=== PATIENT | female | born 1970 | race Caucasian/White ===

== ENCOUNTER 2016-11-15 14:11 | Emergency (ER) | payer BC ==
[~2016-11-15] VITALS: Ht 172.7 cm; Wt 81.6 kg
[~2016-11-15 14:11] MED LIST: ACET325T9 PO; IBUP200T43 PO; NAPR500T3 PO; TRAM50TA PO
--- NOTE | 2016-11-15 15:01 | ED.ADGEN ---
Past History Past Medical History: Depression, Endometriosis, UTI, Other Past Surgical History: Cholecystectomy, , Tonsillectomy, Other Smoking: Non-smoker Alcohol Use: None Drug Use: None Adult General HPI HPI Patient is a 45-year-old female presents emergency department complaining of increasing dyspnea over the last 2-3 days. Denies any recent illness, cough, fever, chills. Denies any wheezing or history of asthma. Patient notes that she does have a history of anxiety and is currently on Lexapro for that. She does admit that she has not always taken it faithfully but has never required anything for breakthrough anxiety. She was recently started on phentermine for weight loss and is concerned this may be a side effect of that as well. She has not taken the phentermine for the last 2 days but continues to have increasing dyspnea. She reports a significant increase the amount of stress that she is experiencing both at work and at home. She is currently raising on her own children including one special needs child, she is currently caring for her grandchildren as well. 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 She does not smoke or take any hormone supplements. She has had no recent surgery, immobilizations, or travel. Review of Systems Review of Systems Constitutional: Denies fever or chills [] Eyes: Denies change in visual acuity, redness, or eye pain [] HENT: Denies nasal congestion or sore throat [] Respiratory: Denies cough or shortness of breath [] Cardiovascular: No additional information not addressed in HPI [] GI: Denies abdominal pain, nausea, vomiting, bloody stools or diarrhea [] : Denies dysuria or hematuria [] Musculoskeletal: Denies back pain or joint pain [] Integument: Denies rash or skin lesions [] Neurologic: Denies headache, focal weakness or sensory changes [] Endocrine: Denies polyuria or polydipsia [] Current Medications Current Medications Current Medications Medications (Trade) Dose Ordered Sig/Segun Start Time Stop Time Status Last Admin Dose Admin Alprazolam (Xanax) 0.5 mg 1X ONCE 11/15/16 15:15 11/15/16 15:16 DC 11/15/16 15:07 0.5 MG Allergies Allergies Allergies Coded Allergies Type Severity Reaction Last Updated Verified Penicillins Allergy Unknown 12/07/15 Yes hydrocodone Allergy Unknown 12/07/15 Yes ketorolac Allergy Unknown 12/07/15 Yes morphine Allergy Unknown 12/07/15 Yes oxycodone Allergy Unknown 12/07/15 Yes Physical Exam Physical Exam Constitutional: Well developed, well nourished, no acute distress, non-toxic appearance. [] HENT: Normocephalic, atraumatic, bilateral external ears normal, oropharynx moist, no oral exudates, nose normal. [] Eyes: PERRLA, EOMI, conjunctiva normal, no discharge. [] Neck: Normal range of motion, no tenderness, supple, no stridor. [] Cardiovascular:Heart rate regular rhythm, no murmur [] Lungs & Thorax: Bilateral breath sounds clear to auscultation [] Abdomen: Bowel sounds normal, soft, no tenderness, no masses, no pulsatile masses. [] Skin: Warm, dry, no erythema, no rash. [] Back: No tenderness, no CVA tenderness. [] Extremities: No tenderness, no cyanosis, no clubbing, ROM intact, no edema. [] Neurologic: Alert and oriented X 3, normal motor function, normal sensory function, no focal deficits noted. [] Psychologic: Affect normal, judgement normal, mood normal. [] Current Patient Data Vital Signs Vital Signs Date Time Temp Pulse Resp B/P Pulse Ox O2 Delivery O2 Flow Rate FiO2 11/15/16 16:02 71 20 122/83 98 Room Air 11/15/16 14:11 98.7 EKG EKG EKG interpreted by me, normal sinus rhythm, 69 beats for minute, no ST segment elevation, normal axis. [] Radiology/Procedures Radiology/Procedures [] Course & Med Decision Making Course & Med Decision Making Pertinent Labs and Imaging studies reviewed. (See chart for details) [] Final Impression Final Impression anxiety[] Problems: Dragon Disclaimer Dragon Disclaimer This electronic medical record was generated, in whole or in part, using a voice recognition dictation system. ASHWIN WISE MD Nov 15, 2016 15:01
[2016-11-15] MEDS ORDERED: ALPRAZOLAM 0.25 MG TABLET PO ONE (15:15)
[2016-11-15] MEDS ORDERED: ALPR0.5T PO (15:52)
[2016-11-15 16:02] VITALS: BP 122/83
--- NOTE | 2016-11-17 11:56 | EKG ---
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
== END 2016-11-15 16:00 | disposition home or self-care (01) ==
LOC: ER 14:11
DX: F41.9 Anxiety disorder, unspecified (principal); F32.9 Major depressive disorder, single episode, unspecified; R06.00 Dyspnea, unspecified; Z87.440 Personal history of urinary (tract) infections; Z88.0 Allergy status to penicillin; Z88.5 Allergy status to narcotic agent; Z88.8 Allergy status to other drugs, medicaments and biological substances
CPT/HCPCS: 93005; 99283-25

== ENCOUNTER 2016-12-28 00:40 | Emergency (ER) | payer BC ==
[~2016-12-28] VITALS: Ht 172.7 cm; Wt 91.5 kg
[2016-12-28 00:40] VITALS: BP 138/91
[~2016-12-28 00:40] MED LIST changes: +ALPR0.5T PO
--- NOTE | 2016-12-28 00:58 | PHYS DOC ---
Past History Past Medical History: Depression, Endometriosis, UTI, Other Past Surgical History: Cholecystectomy, , Tonsillectomy, Other Smoking: Non-smoker Alcohol Use: None Drug Use: None Adult General Chief Complaint Chief Complaint: DENTAL PROBLEM HPI HPI 46-year-old female complaining of dental pain. Her pain is throbbing and moderate nonradiating and without alleviating factors. She's been taking acetaminophen and ibuprofen for her pain with minimal relief. Review of systems is negative for chest pain shortness of breath tongue swelling drooling neck pain fevers or chills. All other review of systems is negative unless otherwise noted in history of present illness. Review of Systems Review of Systems SEE ABOVE. Allergies Allergies Allergies Coded Allergies Type Severity Reaction Last Updated Verified Penicillins Allergy Unknown 12/07/15 Yes hydrocodone Allergy Unknown 12/07/15 Yes ketorolac Allergy Unknown 12/07/15 Yes morphine Allergy Unknown 12/07/15 Yes oxycodone Allergy Unknown 12/07/15 Yes Physical Exam Physical Exam Constitutional: Well developed, well nourished, no acute distress, non-toxic appearance. [] HENT: Normocephalic, atraumatic, bilateral external ears normal, oropharynx moist, no oral exudates, nose normal. Right upper back teeth show poor dentition with cavities. No periapical abscesses present. No swelling of the tongue. No fluctuant masses in the neck. Eyes: PERRLA, EOMI, conjunctiva normal, no discharge. Neck: Normal range of motion, no tenderness, supple, no stridor. [] Cardiovascular:Heart rate regular rhythm, no murmur Lungs & Thorax: Bilateral breath sounds clear to auscultation [] Abdomen: Bowel sounds normal, soft, no tenderness, no masses, no pulsatile masses. Skin: Warm, dry, no erythema, no rash. Back: No tenderness, no CVA tenderness. [] Extremities: No tenderness, no cyanosis, no clubbing, ROM intact, no edema. Neurologic: Alert and oriented X 3, normal motor function, normal sensory function, no focal deficits noted. [] Psychologic: Affect normal, judgement normal, mood normal. [] EKG EKG [] Radiology/Procedures Radiology/Procedures [] Course & Med Decision Making Course & Med Decision Making Pertinent Labs and Imaging studies reviewed. (See chart for details) [] 46-year-old female presenting the emergency department dental pain. She is allergic to most opioid medications and NSAIDs so I recommended acetaminophen and follow up with dental clinic in the morning. The patient was then discharged home in stable condition to follow up with their primary care physician over the next 2-3 days. They were to return if their symptoms worsened or if they were concerned for any reason. [id number] discharge instructions and return precautions were given. Patient's questions were answered to their satisfaction. Patient is comfortable plan. Dragon Disclaimer Dragon Disclaimer This chart was dictated in whole or in part using Voice Recognition software in a busy, high-work load, and often noisy Emergency Department environment. It may contain unintended and wholly unrecognized errors or omissions. Departure Departure: Impression: Primary Impression: Pain, dental Disposition: 01 HOME, SELF-CARE Condition: STABLE Referrals: YOSELIN SANCHEZ MD (PCP) Patient Instructions: Dental Pain LAUREL DAUGHERTY MD December 28, 2016 00:58
== END 2016-12-28 01:08 | disposition home or self-care (01) ==
LOC: ER 00:40
DX: K08.89 Other specified disorders of teeth and supporting structures (principal); Z87.440 Personal history of urinary (tract) infections; Z88.0 Allergy status to penicillin; Z88.6 Allergy status to analgesic agent; Z88.5 Allergy status to narcotic agent; Z88.8 Allergy status to other drugs, medicaments and biological substances
CPT/HCPCS: 99281

== ENCOUNTER → 2017-03-12 | Outpatient (CLI) | payer BC ==
[~2017-03-12] MED LIST changes: +IOHEXOL 240 MG/ML 50ML VIAL. ONE
[2017-03-12] MEDS: IOHEXOL 240 MG/ML 50ML VIAL. PO ONE (08:34)
[2017-03-12] MEDS: IOHEXOL 300 MG/ML 75 ML VIAL. IV ONE (08:35)
--- NOTE | 2017-03-12 11:37 | RAD ---
CT abdomen and pelvis with contrast 03/12/2017 Clinical indication: Pelvic pain, chronic. Endometriosis, urinary incontinence. PID, UTIs frequently. Comparison: CT pelvis without contrast November 14, 2013 Technique: Multiple CT images of the abdomen and pelvis were obtained following uneventful intravenous administration of 75 mL Omnipaque 300. Coronal and sagittal reformations were obtained. PQRS Compliance Statement: One or more of the following individualized dose reduction techniques were utilized for this examination: 1. Automated exposure control 2. Adjustment of the mA and/or kV according to patient size 3. Use of iterative reconstruction technique Findings: Abdomen and pelvis: Heart size is normal and lung bases are clear. Examination is somewhat limited due to motion artifact especially of the mid abdomen. Liver is normal in morphology. There is a stable 7 mm hypodense hepatic segment 8 (series 4/image 9) and is too small to definitively characterize, though stability suggests benign cyst or hemangioma. Evaluation of the inferior right and left lobes of the liver is significantly limited due to motion artifact. Prior cholecystectomy. No intra or extra-axial biliary ductal dilatation. Spleen, adrenal glands and pancreas are within normal limits. There are a few 2 mm nonobstructive left renal calculi. No collecting system dilatation. Abdominal aorta is normal in caliber. Mild calcified atheromatous disease of the iliac arteries. No bowel obstruction. No abdominal free fluid. There is fecal lies distal small bowel contents which suggests component of delayed transit. Mild distended and unopacified urinary bladder demonstrates mild circumferential urinary bladder wall thickening. Uterus is present and, though incompletely evaluated by CT. No iliac or inguinal lymphadenopathy. No retroperitoneal lymphadenopathy. No destructive osseous lesions. Impression: 1. Examination of the mid abdomen is somewhat limited due to motion. 2. Two tiny nonobstructive left nephrolithiasis. 3. Mild circumferential urinary bladder wall thickening, can be seen with cystitis. Correlation with urinalysis is recommended.
== END | disposition home or self-care (01) ==
LOC: CT 07:02
PROVIDERS: ATTEND Family Medicine
DX: N20.0 Calculus of kidney (principal); I70.8 Atherosclerosis of other arteries; N39.0 Urinary tract infection, site not specified; N39.498 Other specified urinary incontinence; N73.9 Female pelvic inflammatory disease, unspecified; N80.9 Endometriosis, unspecified
CPT/HCPCS: 74177; Q9966; Q9967

== ENCOUNTER 2017-03-19 09:35 | Inpatient (IN) | payer BC ==
[~2017-03-19] VITALS: Ht 175.3 cm; Wt 81.7 kg
[~2017-03-19 09:35] MED LIST changes: -IOHEXOL 240 MG/ML 50ML VIAL. ONE
[2017-03-19 10:14] VITALS: BP 119/82
[2017-03-19] MEDS ORDERED: ONDANSETRON ODT 4 MG TAB.RAPDIS PO PRN (10:30)
[2017-03-19] MEDS ORDERED: ONDANSETRON PF 4 MG/2 ML VIAL. IV PRN (10:30)
[2017-03-19 10:33] VITALS: BP 119/82
[2017-03-19] MEDS ORDERED: LEVO150T5 PO (10:37)
[2017-03-19 10:51] LABS: BASO # 0.1 x10^3/uL (0.0-0.2); BASO % 1 % (0-3); EOS # 0.4 x10^3/uL (0.0-0.7); EOS % 8 % (0-3); HEMATOCRIT 38.6 % (36.0-47.0); HEMOGLOBIN 12.8 g/dL (12.0-15.5); LYMPH # 1.5 x10^3/uL (1.0-4.8); LYMPH % 31 % (24-48); MEAN CORPUSCULAR HEMOGLOBIN 29 pg (25-35); MEAN CORPUSCULAR HGB CONC 33 g/dL (31-37); MEAN CORPUSCULAR VOLUME 86 fL (79-100); MONO # 0.4 x10^3/uL (0.0-1.1); MONO % 8 % (0-9); NEUT # 2.5 x10^3uL (1.8-7.7); NEUT % 52 % (31-73); PLATELET COUNT 228 x10^3/uL (140-400); RED BLOOD COUNT 4.49 x10^6/uL (3.50-5.40); WHITE BLOOD COUNT 4.9 x10^3/uL (4.0-11.0)
[2017-03-19] MEDS: ALPRAZolam 0.25 MG TABLET PO PRN (11:09)
[2017-03-19] MEDS: IV NORMAL SALINE 1,000ML 1,000 ML IV SCH ×2 (11:10→19:10)
[2017-03-19] MEDS: fentaNYL PF 100 MCG/2 ML VIAL IV PRN ×3 (11:10→19:10)
[2017-03-19 11:24] LABS: ALBUMIN 3.8 g/dL (3.4-5.0); ALBUMIN/GLOBULIN RATIO 1.1 (1.0-1.7); CREATININE 0.9 mg/dL (0.6-1.0); POTASSIUM 3.7 mmol/L (3.5-5.1); TOTAL BILIRUBIN 0.4 mg/dL (0.2-1.0); TOTAL PROTEIN 7.3 g/dL (6.4-8.2)
[2017-03-19 11:48] LABS: AMORPHOUS SEDIMENT,UR PRESENT /HPF; BACTERIA,URINE FEW /HPF (0-FEW); BILIRUBIN,URINE NEG (NEG); CLARITY,URINE CLOUDY; COLOR,URINE YELLOW; GLUCOSE,URINE NEG (NEG); NITRITE,URINE NEG (NEG); SQUAMOUS EPITHELIAL CELL,UR MOD /LPF; UROBILINOGEN,URINE 0.2 mg/dL (0.2 mg/dL)
--- NOTE | 2017-03-19 12:09 | RAD ---
Indication kidney stone. Persistent pain. Axial images through the abdomen and pelvis were obtained. The examination was tailored for the detection of renal and/or ureteral calculi. No IV or gastrointestinal contrast was administered. Note is made of a previous BX examination of the abdomen and pelvis, with both IV and oral contrast, one week ago. The lung bases are clear. The liver and spleen appear unremarkable. Clips are noted in the gallbladder fossa. No pancreatic abnormality is seen. There are 3 small left renal calculi the largest measuring approximately 2 to 3 mm. No right renal calculi are seen. There is no hydronephrosis hydroureter or calcification seen along the course of either ureter. Multiple calcifications are seen in the pelvis similar to the previous exam compatible with phleboliths. Several diverticula are noted in the large bowel no active inflammation is seen. IMPRESSION: 3 small left intrarenal calculi. No hydronephrosis hydroureter or calcification seen along the course of either ureter. No acute finding seen in the abdomen or pelvis PQRS Compliance Statement: One or more of the following individualized dose reduction techniques were utilized for this examination: 1. Automated exposure control 2. Adjustment of the mA and/or kV according to patient size 3. Use of iterative reconstruction technique
[2017-03-19 15:03] VITALS: BP 121/80
[2017-03-19 19:21] VITALS: BP 131/88
[2017-03-19 23:27] VITALS: BP 120/78
--- NOTE | 2017-03-20 00:41 | ACF ---
Admission Criteria Forms URINARY COMPLICATIONS (Place 'X' for any and all applicable criteria): Ongoing inpatient care may be needed for Urinary complications with 1 or more of the following: [ ]I. Reduced urine output (eg, despite adequate hydration) [ ]II. Renal failure. (Also use Renal Failure: Common Complications and Conditions as appropriate) [ ]III. Urinary retention requiring drainage or surgery(19)(20)(21)(33)(34) [ ]IV. Postobstructive diuresis requiring close monitoring of urine output and intravenous compensation for excessive fluid losses(35) [x]V. Urinary tract infection requiring inpatient care as indicated by ANY ONE of the following(8)(19)(20): [ ]a) Hemodynamic instability [ ]b) Severe symptoms (eg, high fever, severe pain) [ ]c) Vomiting or dehydration requiring ongoing inpatient care [x]d) IV antibiotic needs that cannot be managed at lower level of care [ ]e) Obstruction of collecting system by stone or tumor Extended stay beyond goal length of stay for primary condition may be needed until ALL of the following are present(3)(4)(5)(8): [ ]a) Renal function (creatinine) at baseline, or daily decreases in creatinine consistent with renal function return [ ]b) Voiding adequately or with urinary catheter or percutaneous suprapubic tube and management regimen in place that is performable at lower level of care. [ ]c) Urine output adequate [ ]d) Fever absent or resolving [ ]e) Infection absent or treatable at next level of care The original [employer] content created by [email or web address] has been revised. The portions of the content which have been revised are identified through the use of italic text, and [facility] has neither reviewed nor approved the modified material. All other unmodified content is copyright [facility] Please see references footnoted in the original [facility] edition 2014 Admission Criteria Met?: Yes IGOR VERA Mar 20, 2017 00:41
[2017-03-20] MEDS: fentaNYL PF 100 MCG/2 ML VIAL IV PRN ×2 (01:40→07:58)
[2017-03-20 05:31] VITALS: BP 110/77
[2017-03-20] MEDS: IV NORMAL SALINE 1,000ML 1,000 ML IV SCH ×2 (05:51→17:08)
[2017-03-20 06:55] LABS: BASO # 0.1 x10^3/uL (0.0-0.2); BASO % 2 % (0-3); EOS # 0.4 x10^3/uL (0.0-0.7); EOS % 9 % (0-3); HEMATOCRIT 37.4 % (36.0-47.0); HEMOGLOBIN 12.3 g/dL (12.0-15.5); LYMPH # 1.3 x10^3/uL (1.0-4.8); LYMPH % 31 % (24-48); MEAN CORPUSCULAR HEMOGLOBIN 28 pg (25-35); MEAN CORPUSCULAR HGB CONC 33 g/dL (31-37); MEAN CORPUSCULAR VOLUME 86 fL (79-100); MONO # 0.3 x10^3/uL (0.0-1.1); MONO % 7 % (0-9); NEUT # 2.2 x10^3uL (1.8-7.7); NEUT % 51 % (31-73); PLATELET COUNT 208 x10^3/uL (140-400); RED BLOOD COUNT 4.35 x10^6/uL (3.50-5.40); RED CELL DISTRIBUTION WIDTH 14.6 % (11.5-14.5); WHITE BLOOD COUNT 4.2 x10^3/uL (4.0-11.0)
[2017-03-20 06:58] LABS: CALCIUM 8.3 mg/dL (8.5-10.1); CREATININE 0.8 mg/dL (0.6-1.0); GFR 77.9; POTASSIUM 4.1 mmol/L (3.5-5.1)
[2017-03-20] MEDS: LEVOTHYROXINE 150 MCG TABLET PO SCH (07:58)
[2017-03-20 10:30] VITALS: BP 123/94
[2017-03-20] MEDS: traMADol/APAP 37.5/325 1 TAB TABLET PO PRN ×2 (12:08→20:35)
[2017-03-20] MEDS ORDERED: MORPHINE ER 15 MG TABLET.ER PO SCH (14:00)
[2017-03-20] MEDS ORDERED: MORPHINE ER 15 MG TABLET.ER PO ONE (14:00)
[2017-03-20 14:17] VITALS: BP 128/85
[2017-03-20] MEDS ORDERED: fentaNYL 25MCG/HR 1 PATCH PATCH TD SCH (16:30)
[2017-03-20] MEDS ORDERED: DOCUSATE SODIUM 100 MG CAPSULE PO PRN (16:30)
[2017-03-20] MEDS ORDERED: PSYLLIUM SEED (WITH SUGAR) PACKET. PO PRN (16:30)
[2017-03-20] MEDS ORDERED: MAGNESIUM CITRATE 296 ML SOLUTION. PO ONE (16:45)
[2017-03-20 18:30] VITALS: BP 131/90
[2017-03-20] MEDS: ALPRAZolam 0.25 MG TABLET PO PRN (20:35)
[2017-03-20 23:09] VITALS: BP 127/84
[2017-03-20] MEDS: diphenhydrAMINE HCL 25 MG CAPSULE PO PRN (23:21)
[2017-03-21] MEDS: IV NORMAL SALINE 1,000ML 1,000 ML IV SCH ×2 (02:39→12:30)
[2017-03-21 02:47] VITALS: BP 133/92
--- NOTE | 2017-03-21 03:25 | PN ---
DATE: 03/20/2017 SUBJECTIVE: The patient has right abdominal pain so it is somewhat better, but still in quite a bit of pain trying to find medications that will help her and some of the medications used she has had reactions too. The patient notes pain has about 6-10 even with morphine. We will try her on Duragesic patch. OBJECTIVE: VITAL SIGNS: Blood pressure 130/90, respiratory rate 20, pulse 64, afebrile. GENERAL: The patient is alert and oriented. LUNGS: Diminished, but clear. CARDIOVASCULAR: Regular sinus rhythm, S1, S2, without murmur, rub, thrill, or extra heart sounds. ABDOMEN: Soft, nontender except in the right mid quadrant, right lower quadrant, marked tenderness was noted. EXTREMITIES: No clubbing, cyanosis, or edema. NEUROLOGIC: Otherwise intact. IMPRESSION: Abdominal pain not controlled with oral analgesics, kidney stones, nephrolithiasis. PLAN: Continue to adjust medications and hydrate . OBDULIA DALE MD DR: DEBRA/alvino JOB#: [id number] / [id number]
[2017-03-21 04:28] VITALS: BP 127/87
[2017-03-21] MEDS: LEVOTHYROXINE 150 MCG TABLET PO SCH (06:03)
[2017-03-21 06:15] VITALS: BP 131/84
[2017-03-21] MEDS: traMADol/APAP 37.5/325 1 TAB TABLET PO PRN (06:18)
[2017-03-21 06:31] LABS: BARBITURATES NEG (NEG); BENZODIAZEPINES NEG (NEG); CANNABINOIDS NEG (NEG); COCAINE NEG (NEG); METHADONE NEG (NEG); OPIATES POS (NEG); PHENCYCLIDINE NEG (NEG)
[2017-03-21 06:32] LABS: AMPHETAMINE/METHAMPHETAMINE NEG (NEG)
[2017-03-21 11:51] VITALS: BP 120/76
[2017-03-21] MEDS ORDERED: KETOROLAC TROMETHAMINE 10 MG TABLET PO PRN (12:15)
[2017-03-21] MEDS: diphenhydrAMINE HCL 25 MG CAPSULE PO PRN (12:32)
[2017-03-21] MEDS ORDERED: KETO10TA PO (15:13)
[2017-03-21 15:29] VITALS: BP 126/80
[2017-03-21] MEDS ORDERED: PROM25TA10 PO (16:08)
--- NOTE | 2017-03-21 20:42 | PN ---
DATE: 03/21/2017 The patient will be discharged home today. The patient has been having problems with her fentanyl patch. She still has some diffuse abdominal pain, will probably need a colonoscopy or something as an outpatient, put her on Toradol for now. She has got good kidney function. Continue to monitor have for her followup, but apparently she does have a reaction to fentanyl now as well as several of the other narcotic medications. OBDULIA DALE MD DR: DEBRA/alvino JOB#: [id number] / [id number]
== END 2017-03-21 16:20 | disposition home or self-care (01) | DRG 694 ==
LOC: 1 SOUTH 09:41
PROVIDERS: ADMIT Family Medicine; ATTEND Family Medicine
DX: N20.0 Calculus of kidney (principal); E28.2 Polycystic ovarian syndrome; E89.0 Postprocedural hypothyroidism; Z90.49 Acquired absence of other specified parts of digestive tract
CPT/HCPCS: 36415; 74176; 80048; 80053; 80307; 81001; 83605; 85025; 85027; 87086; J0696; J2405; J3010; Q0163; G0479; J7030

== ENCOUNTER 2017-05-12 12:27 | Emergency (ER) | payer BC ==
[~2017-05-12] VITALS: Ht 175.3 cm; Wt 91.5 kg
[~2017-05-12 12:27] MED LIST changes: +KETO10TA PO; +LEVO150T5 PO; -NAPR500T3 PO; +NAPR500T4 PO; +PROM25TA10 PO
--- NOTE | 2017-05-12 13:10 | PHYS DOC ---
Past History Past Medical History: Anxiety, Depression, Endometriosis, Kidney Stones, UTI, Other Past Surgical History: Cholecystectomy, , Tonsillectomy, Other Smoking: Non-smoker Alcohol Use: None Drug Use: None Adult General Chief Complaint Chief Complaint: BACK PAIN OR INJURY HPI HPI 46-year-old female presenting to the emergency department today with right- sided low back pain that is been present for more than 2 years. It comes and goes and she has been working with her primary care physician to come up with solutions. She reports having multiple MRIs and multiple CAT scans are all within normal limits. She reports having a lumbar MRI within the last month which was reportedly unremarkable. She reports having mild tingling in her foot the pain is sharp shooting radiates into her buttocks. It is worse when she walks and moves. It is better with rest. She has had a really difficult time at work because of the pain. She has tried fentanyl patches and is unfortunately allergic to most opioid medications. The patient denies any fevers chills. She denies IV drug use. She denies fecal incontinence. She denies perineal paresthesias. Review of systems is negative for chest pain shortness of breath nausea vomiting fevers or chills. All other review of systems is negative unless otherwise noted in history of present illness. Emergency department course: 46-year-old female presenting to the emergency department today with severe right lower back pain. Pertinent physical examination findings show tenderness along the right buttocks. Nontender midline without any fluctuance ecchymosis lacerations or abrasions. No step- offs of the lumbar spine. Positive straight leg test on the right. The patient was provided with intramuscular hydromorphone for pain relief. On reexamination her pain improved. We attempted to obtain a urinalysis on the patient along with test however the patient was unable to obtain urinalysis after being in the emergency department for 90 minutes. She denies being . Bladder scan shows the patient has 90 mL of urine. The patient reports not being able to urinate. The patient was then discharged home to continue following up with her primary care physician. The patient was then discharged home in stable condition to follow up with their primary care physician over the next 2-3 days. They were to return if their symptoms worsened or if they were concerned for any reason. [id number] discharge instructions and return precautions were given. Patient's questions were answered to their satisfaction. Patient is comfortable plan. Review of Systems Review of Systems SEE ABOVE. Allergies Allergies Allergies Coded Allergies Type Severity Reaction Last Updated Verified Penicillins Allergy Unknown 12/07/15 Yes hydrocodone Allergy Unknown 12/07/15 Yes oxycodone Allergy Unknown 12/07/15 Yes Physical Exam Physical Exam SEE ABOVE Constitutional: Well developed, well nourished, no acute distress, non-toxic appearance. [] HENT: Normocephalic, atraumatic, bilateral external ears normal, oropharynx moist, no oral exudates, nose normal. [] Eyes: PERRLA, EOMI, conjunctiva normal, no discharge. [] Neck: Normal range of motion, no tenderness, supple, no stridor. [] Cardiovascular:Heart rate regular rhythm, no murmur [] Lungs & Thorax: Bilateral breath sounds clear to auscultation [] Abdomen: Bowel sounds normal, soft, no tenderness, no masses, no pulsatile masses. [] Skin: Warm, dry, no erythema, no rash. [] Back: No tenderness, no CVA tenderness. [] Extremities: No tenderness, no cyanosis, no clubbing, ROM intact, no edema. [] Neurologic: Alert and oriented X 3, normal motor function, normal sensory function, no focal deficits noted. []5 out of 5 strength in the patient's right lower and left lower extremity. 2+ deep tendon reflexes in the knees. Psychologic: Affect normal, judgement normal, mood normal. [] Current Patient Data Vital Signs Vital Signs Date Time Temp Pulse Resp B/P (MAP) Pulse Ox O2 Delivery O2 Flow Rate FiO2 05/12/17 12:27 97.4 100 18 100 Room Air EKG EKG [] Radiology/Procedures Radiology/Procedures [] Course & Med Decision Making Course & Med Decision Making Pertinent Labs and Imaging studies reviewed. (See chart for details) [] Dragon Disclaimer Dragon Disclaimer This chart was dictated in whole or in part using Voice Recognition software in a busy, high-work load, and often noisy Emergency Department environment. It may contain unintended and wholly unrecognized errors or omissions. Departure Departure: Impression: Primary Impression: Sciatica Disposition: 01 HOME, SELF-CARE Condition: STABLE Referrals: OBDULIA DALE MD (PCP) Patient Instructions: Sciatica, [id number] Additional Instructions: Thank you for allowing us to participate in your care today. Followup with your primary care physician in 3 days if your symptoms do not improve. Call your Primary Doctor tomorrow and inform them of your visit today. If you do not have a primary care provider you can ask for a list of our primary care providers. Return to the emergency department you have any new or concerning findings. This should be evaluated by the primary care physician and any necessary consulting services for continued management within a few days after discharge. Return to emergency room if you have any new or concerning symptoms including but not limited to fever, chills, nausea, vomiting, intractable pain, any new rashes, chest pain, shortness of air, uncontrolled bleeding, difficulty breathing, and/or vision loss. LAUREL DAUGHERTY MD May 12, 2017 13:10
[2017-05-12] MEDS ORDERED: HYDROmorphone PF 1 MG/ML DISP.SYRIN IM ONE (13:15)
[2017-05-12 15:13] LABS: BACTERIA,URINE FEW /HPF (0-FEW); BILIRUBIN,URINE NEG (NEG); CLARITY,URINE CLEAR; COLOR,URINE YELLOW; GLUCOSE,URINE NEG (NEG); NITRITE,URINE NEG (NEG); SQUAMOUS EPITHELIAL CELL,UR FEW /LPF; UROBILINOGEN,URINE 0.2 mg/dL (0.2 mg/dL)
[2017-05-12 15:14] LABS: U PREG PATIENT NEGATIVE (NEG)
[2017-05-12] MEDS ORDERED: HYDROmorphone PF 1 MG/ML DISP.SYRIN IV PRN (17:15)
[2017-05-12] MEDS ORDERED: IV NORMAL SALINE 500ML 500 ML IV ONE (17:15)
[2017-05-12] MEDS ORDERED: ONDANSETRON PF 4 MG/2 ML VIAL. IV ONE (17:35)
[2017-05-12 18:12] VITALS: BP 144/85
== END 2017-05-12 18:13 | disposition home or self-care (01) ==
LOC: ER 12:27
DX: M54.41 Lumbago with sciatica, right side (principal); F41.9 Anxiety disorder, unspecified; Z87.442 Personal history of urinary calculi; Z87.440 Personal history of urinary (tract) infections; Z98.890 Other specified postprocedural states; Z88.0 Allergy status to penicillin; Z88.5 Allergy status to narcotic agent
CPT/HCPCS: 81001; 81025; 96361; 96372; 96374; 96375; 99284; J1170; J2405; J7040

== ENCOUNTER 2017-07-14 17:10 | Emergency (ER) | payer BC ==
[~2017-07-14] VITALS: Ht 175.3 cm; Wt 91.5 kg
[~2017-07-14 17:10] MED LIST changes: -IBUP200T43 PO; +IBUP200T44 PO
--- NOTE | 2017-07-14 17:54 | EKG ---
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
[2017-07-14] MEDS ORDERED: IV NORMAL SALINE 1,000ML 1,000 ML IV ONE (19:00)
[2017-07-14 19:03] LABS: BASO % 0 % (0-3); EOS # 0.2 x10^3/uL (0.0-0.7); EOS % 2 % (0-3); HEMOGLOBIN 13.3 g/dL (12.0-15.5); LYMPH # 2.5 x10^3/uL (1.0-4.8); LYMPH % 37 % (24-48); MEAN CORPUSCULAR HEMOGLOBIN 29 pg (25-35); MEAN CORPUSCULAR HGB CONC 34 g/dL (31-37); MEAN CORPUSCULAR VOLUME 86 fL (79-100); MONO # 0.5 x10^3/uL (0.0-1.1); MONO % 8 % (0-9); NEUT # 3.6 x10^3uL (1.8-7.7); NEUT % 53 % (31-73); PLATELET COUNT 271 x10^3/uL (140-400); RED BLOOD COUNT 4.52 x10^6/uL (3.50-5.40); RED CELL DISTRIBUTION WIDTH 13.4 % (11.5-14.5); WHITE BLOOD COUNT 6.8 x10^3/uL (4.0-11.0)
[2017-07-14] MEDS ORDERED: methylPREDNISolone SOD SUCC PF 125 MG/2 ML VIAL. IV ONE (19:15)
[2017-07-14] MEDS ORDERED: IPRATRPIUM/ALBUTEROL 0.5/2.5MG 3 ML NEBU. NEB ONE (19:15)
[2017-07-14 19:25] LABS: ALBUMIN/GLOBULIN RATIO 1.1 (1.0-1.7); CALCIUM 10.2 mg/dL (8.5-10.1); GFR 60.2; MAGNESIUM 1.9 mg/dL (1.8-2.4); POTASSIUM 4.1 mmol/L (3.5-5.1); TOTAL BILIRUBIN 0.3 mg/dL (0.2-1.0); TOTAL PROTEIN 7.8 g/dL (6.4-8.2)
--- NOTE | 2017-07-14 19:50 | PHYS DOC ---
Past History Past Medical History: Anxiety, Depression, Endometriosis, GERD, Kidney Stones, UTI, Other Past Surgical History: Cholecystectomy, , Tonsillectomy, Other Smoking: Non-smoker Alcohol Use: Occasionally Drug Use: None Adult General Chief Complaint Chief Complaint: SHORTNESS OF BREATH HPI HPI 46-year-old nonsmoking female patient complaining of episodes of productive cough for the last 8 days with yellow and green sputum that changed to nonproductive cough the last couple days. Patient also complaining of shortness of breath constantly and patient feeling in her chest for the same time. Patient denies fever and chills, sore throat, nasal congestion and earache. Patient did not have sick contacts at home. Patient was seen at [facility] last week with overnight admission and negative evaluation including CT of chest for PE. Patient states she did not have any definitive diagnosis or prescription and her shortness of breath and cough is not getting better and she is not able to sleep and feeling tired and weak. Review of Systems Review of Systems Constitutional: Denies fever or chills [] Eyes: Denies change in visual acuity, redness, or eye pain [] HENT: Denies nasal congestion or sore throat [] Respiratory: Reports cough and shortness of breath [] Cardiovascular: No additional information not addressed in HPI [] GI: Denies abdominal pain, nausea, vomiting, bloody stools or diarrhea [] : Denies dysuria or hematuria [] Musculoskeletal: Denies back pain or joint pain [] Integument: Denies rash or skin lesions [] Neurologic: Denies headache, focal weakness or sensory changes [] Endocrine: Denies polyuria or polydipsia [] All other systems were reviewed and found to be within normal limits, except as documented in this note. Current Medications Current Medications Current Medications Medications (Trade) Dose Ordered Sig/Segun Start Time Stop Time Status Last Admin Dose Admin Albuterol/ Ipratropium (Duoneb) 3 ml 1X ONCE 07/14/17 19:15 07/14/17 19:16 DC 07/14/17 19:21 3 ML Methylprednisolone Sodium Succinate (SOLU-Medrol 125MG VIAL) 125 mg 1X ONCE 07/14/17 19:15 07/14/17 19:16 DC 07/14/17 19:21 125 MG Sodium Chloride 1,000 ml @ 1,000 mls/hr 1X ONCE 07/14/17 19:00 07/14/17 19:59 07/14/17 19:21 1,000 MLS/HR Allergies Allergies Allergies Coded Allergies Type Severity Reaction Last Updated Verified Penicillins Allergy Unknown 12/07/15 Yes hydrocodone Allergy Unknown 12/07/15 Yes oxycodone Allergy Unknown 12/07/15 Yes Physical Exam Physical Exam Constitutional: Well developed, well nourished, mild distress, non-toxic appearance,anxious. [] HENT: Normocephalic, atraumatic, bilateral external ears normal, oropharynx moist, no oral exudates, nose normal. [] Eyes: PERRLA, EOMI, conjunctiva normal, no discharge. [] Neck: Normal range of motion, no tenderness, supple, no stridor. [] Cardiovascular:Heart rate regular rhythm, no murmur [] Lungs & Thorax: Bilateral breath sounds clear to auscultation [] Abdomen: Bowel sounds normal, soft, no tenderness, no masses, no pulsatile masses. [] Skin: Warm, dry, no erythema, no rash. [] Back: No tenderness, no CVA tenderness. [] Extremities: No tenderness, no cyanosis, no clubbing, ROM intact, no edema. [] Neurologic: Alert and oriented X 3, normal motor function, normal sensory function, no focal deficits noted. Current Patient Data Vital Signs Vital Signs Date Time Temp Pulse Resp B/P (MAP) Pulse Ox O2 Delivery O2 Flow Rate FiO2 07/14/17 19:27 99 Room Air 07/14/17 17:10 98.1 94 20 Lab Results Laboratory Tests Test 07/14/17 18:34 07/14/17 18:39 [id number]-Type Natriuretic Peptide 64 pg/mL (0-124) White Blood Count 6.8 x10^3/uL (4.0-11.0) Red Blood Count 4.52 x10^6/uL (3.50-5.40) Hemoglobin 13.3 g/dL (12.0-15.5) Hematocrit 39.0 % (36.0-47.0) Mean Corpuscular Volume 86 fL (79-100) Mean Corpuscular Hemoglobin 29 pg (25-35) Mean Corpuscular Hemoglobin Concent 34 g/dL (31-37) Red Cell Distribution Width 13.4 % (11.5-14.5) Platelet Count 271 x10^3/uL (140-400) Neutrophils (%) (Auto) 53 % (31-73) Lymphocytes (%) (Auto) 37 % (24-48) Monocytes (%) (Auto) 8 % (0-9) Eosinophils (%) (Auto) 2 % (0-3) Basophils (%) (Auto) 0 % (0-3) Neutrophils # (Auto) 3.6 x10^3uL (1.8-7.7) Lymphocytes # (Auto) 2.5 x10^3/uL (1.0-4.8) Monocytes # (Auto) 0.5 x10^3/uL (0.0-1.1) Eosinophils # (Auto) 0.2 x10^3/uL (0.0-0.7) Basophils # (Auto) 0.0 x10^3/uL (0.0-0.2) Sodium Level 143 mmol/L (136-145) Potassium Level 4.1 mmol/L (3.5-5.1) Chloride Level 106 mmol/L (98-107) Carbon Dioxide Level 25 mmol/L (21-32) Anion Gap 12 (6-14) Blood Urea Nitrogen 14 mg/dL (7-20) Creatinine 1.0 mg/dL (0.6-1.0) Estimated GFR (Cockcroft-Gault) 60.2 BUN/Creatinine Ratio 14 (6-20) Glucose Level 97 mg/dL (70-99) Calcium Level 10.2 mg/dL (8.5-10.1) H Magnesium Level 1.9 mg/dL (1.8-2.4) Total Bilirubin 0.3 mg/dL (0.2-1.0) Aspartate Amino Transferase (AST) 23 U/L (15-37) Alanine Aminotransferase (ALT) 24 U/L (14-59) Alkaline Phosphatase 48 U/L (46-116) Creatine Kinase 106 U/L (26-192) Creatine Kinase MB (Mass) 2.2 ng/mL (0.0-3.6) Creatine Kinase MB Relative Index 2.1 % (0-4) Troponin I Quantitative < 0.017 ng/mL (0-0.055) Total Protein 7.8 g/dL (6.4-8.2) Albumin 4.0 g/dL (3.4-5.0) Albumin/Globulin Ratio 1.1 (1.0-1.7) EKG EKG KG was interpreted by me. EKG at 1750 showed normal sinus rhythm at rate of 87, no ST and T wave abnormality[] Radiology/Procedures Radiology/Procedures [] Course & Med Decision Making Course & Med Decision Making Pertinent Labs and Imaging studies reviewed. (See chart for details) chest x- ray was interpreted by me and did not show acute finding. Evaluation of patient in ER showed 46-year-old female patient with complaining of cough and shortness of breath and pressure chest pain for 8 days with negative evaluation at another hospital including CT of chest for PE. Patient was anxious and tearful with unremarkable labs and chest x-ray. Patient treated with DuoNeb and Solu-Medrol and IV fluid and felt better. Plan discharge patient home to diagnose of bronchitis. Dragon Disclaimer Dragon Disclaimer This electronic medical record was generated, in whole or in part, using a voice recognition dictation system. Departure Departure: Impression: Primary Impression: Acute bronchitis Additional Impressions: Anxiety Non-cardiac chest pain Dyspnea Hypercalcemia Disposition: HOME, SELF-CARE (At 1999) Condition: IMPROVED Referrals: OBDULIA DALE MD (PCP) Follow-up with your physician in 3-5 days Patient Instructions: Acute Bronchitis Scripts Albuterol Sulfate (PROVENTIL HFA INHALER) 6.7 Gm Hfa.aer.ad 2 PUFF IH PRN Q4HRS Y for FOR ASTHMA, #1 INHALER 0 Refills Prov: DONELL HOLDER MD 07/14/17 Benzonatate (TESSALON PERLE) 100 Mg Capsule 1 CAP PO TID, #30 CAP Prov: DONELL HOLDER MD 07/14/17 Methylprednisolone (MEDROL) 4 Mg Tab.ds.pk 1 PKG PO UD, #1 PKG Prov: DONELL HOLDER MD 07/14/17 Azithromycin (ZITHROMAX) 250 Mg Tablet 1 PKG PO UD, #6 TAB Prov: DONELL HOLDER MD 07/14/17 Problem Qualifiers DONELL HOLDER MD Jul 14, 2017 19:50
[2017-07-14] MEDS ORDERED: AZIT250T PO (20:05)
[2017-07-14] MEDS ORDERED: BENZ100C PO (20:05)
[2017-07-14] MEDS ORDERED: ALBU6.7H IH (20:05)
[2017-07-14] MEDS ORDERED: METH4TAB2 PO (20:05)
[2017-07-14 20:30] VITALS: BP 115/71
--- NOTE | 2017-07-15 08:22 | RAD ---
Chest, 2 views, 07/14/2017: History: Shortness of breath Comparison is made to a study from 10/02/2013. The heart size and pulmonary vascularity are normal. No pulmonary infiltrates are seen. There is no evidence of pleural fluid. Mild spurring is present in the spine. IMPRESSION: No acute cardiopulmonary abnormality is detected.
== END 2017-07-14 20:35 | disposition home or self-care (01) ==
LOC: ER 17:10
DX: J20.9 Acute bronchitis, unspecified (principal); F41.9 Anxiety disorder, unspecified; E83.52 Hypercalcemia; K21.9 Gastro-esophageal reflux disease without esophagitis; F32.9 Major depressive disorder, single episode, unspecified; Z87.442 Personal history of urinary calculi; Z88.0 Allergy status to penicillin; Z88.5 Allergy status to narcotic agent
CPT/HCPCS: 36415; 71020; 80053; 82553; 83735; 83880; 84443; 84484; 85025; 93005; 94640; 96361; 96374; 99285; J2930; J7620; J7030

== ENCOUNTER 2017-09-27 17:58 | Inpatient (IN) | payer BC ==
[~2017-09-27] VITALS: Ht 175.3 cm; Wt 77.7 kg
[~2017-09-27 17:58] MED LIST changes: +ALBU6.7H IH; +AZIT250T PO; +BENZ100C PO; +METH4TAB2 PO; +NAPR-514 PO; -NAPR500T4 PO
--- NOTE | 2017-09-27 18:36 | ED.ADGEN ---
Past History Past Medical History: Anxiety, Depression, Endometriosis, GERD, Kidney Stones, UTI, Other Past Surgical History: Cholecystectomy, , Tonsillectomy, Other Smoking: Non-smoker Alcohol Use: Occasionally Drug Use: None Adult General Chief Complaint Chief Complaint " I got this pain and discomfort in my chest and Lt shoulder.. It seemed to start after I took this new pain tablet..." HPI HPI Patient is a 46 year old female who presents with above hx and complaints of chronic sciatica and new Lt shoulder/ chest pain. She denies previous cardiac history. Patient denies any trauma. Patient is currently under a lot of stress at work and with home problems. Patient also complaining of recent exacerbation of her sciatica. Patient recently given a new drug for her chronic pain. Patient noted that her chest pain in left shoulder discomfort seemed to start after taking this medication. Patient states nothing seems to make the chest and shoulder pain better. No recent travel. No history immunosuppression. Review of Systems Review of Systems Constitutional: Denies fever or chills [] Eyes: Denies change in visual acuity, redness, or eye pain [] HENT: Denies nasal congestion or sore throat [] Respiratory: Denies cough or shortness of breath [] Cardiovascular: No additional information not addressed in HPI [] GI: Denies abdominal pain, nausea, vomiting, bloody stools or diarrhea [] : Denies dysuria or hematuria [] Musculoskeletal: Denies back pain or joint pain [] Integument: Denies rash or skin lesions [] Neurologic: Denies headache, focal weakness or sensory changes [] Endocrine: Denies polyuria or polydipsia [] All other systems were reviewed and found to be within normal limits, except as documented in this note. Family History Family History Noncontributory Current Medications Current Medications Current Medications Medications (Trade) Dose Ordered Sig/Segun Start Time Stop Time Status Last Admin Dose Admin Aspirin (Children'S Aspirin) 324 mg 1X ONCE 09/27/17 19:00 09/27/17 19:01 DC 09/27/17 19:31 324 MG Fentanyl Citrate (Fentanyl 2ml Vial) 100 mcg 1X ONCE 09/27/17 21:00 09/27/17 21:01 DC 09/27/17 21:00 100 MCG Info (Do NOT chart on this entry -- for MONITORING) 1 each PRN DAILY PRN 09/27/17 19:00 2/21/18 18:59 Iohexol (Omnipaque 300 Mg/ml) 75 ml 1X ONCE 09/27/17 19:00 09/27/17 19:01 DC Ketorolac Tromethamine (Toradol) 30 mg 1X ONCE 09/27/17 21:00 09/27/17 21:01 DC 09/27/17 20:59 30 MG Potassium Chloride (KCl Oral Soln) 40 meq 1X ONCE 09/27/17 23:00 09/27/17 23:01 DC 09/27/17 23:00 40 MEQ Sodium Chloride 1,000 ml @ 1,000 mls/hr Q1H 09/27/17 18:37 09/27/17 19:36 DC 09/27/17 19:31 1,000 MLS/HR Trimethoprim/ Sulfamethoxazole (Bactrim Ds) 1 tab 1X ONCE 09/27/17 23:00 09/27/17 23:01 DC 09/27/17 23:00 1 TAB See nursing for home medications Allergies Allergies Allergies Coded Allergies Type Severity Reaction Last Updated Verified Penicillins Allergy Unknown 12/07/15 Yes hydrocodone Allergy Unknown 12/07/15 Yes oxycodone Allergy Unknown 12/07/15 Yes Physical Exam Physical Exam Constitutional: Well developed, well nourished, moderately acute distress, non- toxic appearance. [] HENT: Normocephalic, atraumatic, bilateral external ears normal, oropharynx moist, no oral exudates, nose normal. [] Eyes: PERRLA, EOMI, conjunctiva normal, no discharge. [] Neck: Normal range of motion, no tenderness, supple, no stridor. [] Cardiovascular:Heart rate regular rhythm, no murmur [] Lungs & Thorax: Bilateral breath sounds clear to auscultation [] Abdomen: Bowel sounds normal, soft, no tenderness, no masses, no pulsatile masses. [] Skin: Warm, dry, no erythema, no rash. [] Back: Marked tenderness, no CVA tenderness. [] Extremities: No tenderness, no cyanosis, no clubbing, ROM intact, no edema. [] Left shoulder and chest discomfort Neurologic: Alert and oriented X 3, normal motor function, normal sensory function, no focal deficits noted. [] Psychologic: Affect normal, judgement normal, mood normal. [] Current Patient Data Vital Signs Vital Signs Date Time Temp Pulse Resp B/P (MAP) Pulse Ox O2 Delivery O2 Flow Rate FiO2 09/27/17 22:45 68 18 119/82 (94) 98 Room Air 09/27/17 19:08 97.8 Lab Results Laboratory Tests Test 09/27/17 19:00 09/27/17 20:45 09/27/17 20:57 White Blood Count 4.7 x10^3/uL (4.0-11.0) Red Blood Count 4.13 x10^6/uL (3.50-5.40) Hemoglobin 11.7 g/dL (12.0-15.5) L Hematocrit 35.2 % (36.0-47.0) L Mean Corpuscular Volume 85 fL (79-100) Mean Corpuscular Hemoglobin 28 pg (25-35) Mean Corpuscular Hemoglobin Concent 33 g/dL (31-37) Red Cell Distribution Width 14.3 % (11.5-14.5) Platelet Count 213 x10^3/uL (140-400) Neutrophils (%) (Auto) 50 % (31-73) Lymphocytes (%) (Auto) 36 % (24-48) Monocytes (%) (Auto) 9 % (0-9) Eosinophils (%) (Auto) 4 % (0-3) H Basophils (%) (Auto) 1 % (0-3) Neutrophils # (Auto) 2.4 x10^3uL (1.8-7.7) Lymphocytes # (Auto) 1.7 x10^3/uL (1.0-4.8) Monocytes # (Auto) 0.4 x10^3/uL (0.0-1.1) Eosinophils # (Auto) 0.2 x10^3/uL (0.0-0.7) Basophils # (Auto) 0.1 x10^3/uL (0.0-0.2) Prothrombin Time 10.2 SEC (9.4-11.4) Prothrombin Time INR 1.0 (0.9-1.1) PTT 23 SEC (23-33) D-Dimer ([place]) 0.34 mg/L (0.00-0.50) Sodium Level 142 mmol/L (136-145) Potassium Level 3.3 mmol/L (3.5-5.1) L Chloride Level 105 mmol/L (98-107) Carbon Dioxide Level 30 mmol/L (21-32) Anion Gap 7 (6-14) Blood Urea Nitrogen 17 mg/dL (7-20) Creatinine 0.7 mg/dL (0.6-1.0) Estimated GFR (Cockcroft-Gault) 90.9 Glucose Level 104 mg/dL (70-99) H Calcium Level 8.8 mg/dL (8.5-10.1) Magnesium Level 1.8 mg/dL (1.8-2.4) Total Bilirubin 0.3 mg/dL (0.2-1.0) Direct Bilirubin 0.1 mg/dL (0.0-0.2) Aspartate Amino Transferase (AST) 16 U/L (15-37) Alanine Aminotransferase (ALT) 21 U/L (14-59) Alkaline Phosphatase 40 U/L (46-116) L Creatine Kinase 90 U/L (26-192) Creatine Kinase MB (Mass) 2.1 ng/mL (0.0-3.6) Creatine Kinase MB Relative Index 2.3 % (0-4) Troponin I Quantitative < 0.017 ng/mL (0-0.055) YD-[id number]-S-Type Natriuretic Peptide 67 pg/mL (0-124) Total Protein 7.1 g/dL (6.4-8.2) Albumin 3.7 g/dL (3.4-5.0) Lipase 206 U/L (73-393) Urine Collection Type Unknown Urine Color Yellow Urine Clarity Cloudy Urine pH 8.0 Urine Specific [place] 1.015 Urine Protein Neg (NEG-TRACE) Urine Glucose (UA) Neg mg/dL (NEG) Urine Ketones (Stick) Neg mg/dL (NEG) Urine Blood Neg (NEG) Urine Nitrite Neg (NEG) Urine Bilirubin Neg (NEG) Urine Urobilinogen Dipstick 0.2 mg/dL (0.2 mg/dL) Urine Leukocyte Esterase Trace (NEG) Urine RBC Occ /HPF (0-2) Urine WBC 1-4 /HPF (0-4) Urine Squamous Epithelial Cells Few /LPF Urine Amorphous Sediment Present /HPF Urine Bacteria Few /HPF (0-FEW) Urine Opiates Screen Neg (NEG) Urine Methadone Screen Neg (NEG) Urine Barbiturates Neg (NEG) Urine Phencyclidine Screen Neg (NEG) Urine Amphetamine/Methamphetamine Neg (NEG) Urine Benzodiazepines Screen Neg (NEG) Urine Cocaine Screen Neg (NEG) Urine Cannabinoids Screen Neg (NEG) Urine Ethyl Alcohol Neg (NEG) POC Urine HCG, Qualitative hcg negative (Negative) EKG EKG My interpretation EKG shows sinus rhythm at 79 bpm. No findings acute morphology. Some nonspecific EKG abnormalities noted. No findings acute STEMI of contralateral changes.[] Radiology/Procedures Radiology/Procedures I interpretation chest x-ray shows no acute cardiopulmonary findings[] Course & Med Decision Making Course & Med Decision Making Pertinent Labs and Imaging studies reviewed. (See chart for details). Plan admission Dr. Crook. Obtain cardiology consult. [] Final Impression Final Impression 1. Chest pain- 2. Anemia 3. Hypokalemia 4. UTI-possible Problems: Dragon Disclaimer Dragon Disclaimer This electronic medical record was generated, in whole or in part, using a voice recognition dictation system. NATHANIEL TEJEDA MD Sep 27, 2017 18:36
[2017-09-27] MEDS ORDERED: IV NORMAL SALINE 1,000ML 1,000 ML IV SCH (18:37)
[2017-09-27] MEDS ORDERED: ASPIRIN 81 MG TAB.CHEW PO ONE (19:00)
[2017-09-27] MEDS ORDERED: CONTRAST GIVEN MC PRN (19:00)
[2017-09-27] MEDS ORDERED: IOHEXOL 300 MG/ML 75 ML VIAL. IV ONE (19:00)
[2017-09-27 19:28] LABS: BASO # 0.1 x10^3/uL (0.0-0.2); BASO % 1 % (0-3); EOS # 0.2 x10^3/uL (0.0-0.7); EOS % 4 % (0-3); HEMATOCRIT 35.2 % (36.0-47.0); HEMOGLOBIN 11.7 g/dL (12.0-15.5); LYMPH # 1.7 x10^3/uL (1.0-4.8); LYMPH % 36 % (24-48); MEAN CORPUSCULAR HEMOGLOBIN 28 pg (25-35); MEAN CORPUSCULAR HGB CONC 33 g/dL (31-37); MEAN CORPUSCULAR VOLUME 85 fL (79-100); MONO # 0.4 x10^3/uL (0.0-1.1); MONO % 9 % (0-9); NEUT # 2.4 x10^3uL (1.8-7.7); NEUT % 50 % (31-73); PLATELET COUNT 213 x10^3/uL (140-400); RED BLOOD COUNT 4.13 x10^6/uL (3.50-5.40); RED CELL DISTRIBUTION WIDTH 14.3 % (11.5-14.5); WHITE BLOOD COUNT 4.7 x10^3/uL (4.0-11.0)
[2017-09-27 19:51] LABS: ALBUMIN 3.7 g/dL (3.4-5.0); CALCIUM 8.8 mg/dL (8.5-10.1); CREATININE 0.7 mg/dL (0.6-1.0); DIRECT BILIRUBIN 0.1 mg/dL (0.0-0.2); GFR 90.9; MAGNESIUM 1.8 mg/dL (1.8-2.4); POTASSIUM 3.3 mmol/L (3.5-5.1); TOTAL BILIRUBIN 0.3 mg/dL (0.2-1.0); TOTAL PROTEIN 7.1 g/dL (6.4-8.2)
[2017-09-27] MEDS ORDERED: KETOROLAC 30 MG/ML VIAL. IV ONE (21:00)
[2017-09-27] MEDS ORDERED: PHEN37.598 PO (21:02)
[2017-09-27 21:43] LABS: BARBITURATES NEG (NEG); BENZODIAZEPINES NEG (NEG); CANNABINOIDS NEG (NEG); COCAINE NEG (NEG); METHADONE NEG (NEG); OPIATES NEG (NEG); PHENCYCLIDINE NEG (NEG)
[2017-09-27 21:44] LABS: AMPHETAMINE/METHAMPHETAMINE NEG (NEG)
[2017-09-27 22:16] LABS: BACTERIA,URINE FEW /HPF (0-FEW); BILIRUBIN,URINE NEG (NEG); CLARITY,URINE CLOUDY; COLOR,URINE YELLOW; GLUCOSE,URINE NEG (NEG); NITRITE,URINE NEG (NEG); RBC,URINE OCC /HPF (0-2); SQUAMOUS EPITHELIAL CELL,UR FEW /LPF; UROBILINOGEN,URINE 0.2 mg/dL (0.2 mg/dL)
[2017-09-27 22:17] LABS: AMORPHOUS SEDIMENT,UR PRESENT /HPF
[2017-09-27] MEDS ORDERED: SMZ/TMP 800/160MG TABLET. PO ONE (23:00)
[2017-09-27] MEDS ORDERED: POTASSIUM CHLORIDE 20 MEQ/15 ML ORAL LIQUID. PO ONE (23:00)
[2017-09-27] MEDS ORDERED: ONDANSETRON PF 4 MG/2 ML VIAL. ONE (23:14)
[2017-09-27] MEDS ORDERED: ONDANSETRON PF 4 MG/2 ML VIAL. IV PRN (23:30)
[2017-09-27] MEDS ORDERED: ENOXAPARIN ** NOTE DOSE ** SYRINGE SQ ONE (23:30)
[2017-09-27] MEDS ORDERED: ONDANSETRON PF 4 MG/2 ML VIAL. IV ONE (23:30)
[2017-09-28 01:01] VITALS: BP 121/84
[2017-09-28 03:00] LABS: BASO # 0.1 x10^3/uL (0.0-0.2); BASO % 1 % (0-3); EOS # 0.2 x10^3/uL (0.0-0.7); EOS % 4 % (0-3); HEMATOCRIT 36.3 % (36.0-47.0); LYMPH # 2.1 x10^3/uL (1.0-4.8); LYMPH % 40 % (24-48); MEAN CORPUSCULAR HEMOGLOBIN 29 pg (25-35); MEAN CORPUSCULAR HGB CONC 33 g/dL (31-37); MEAN CORPUSCULAR VOLUME 88 fL (79-100); MONO # 0.5 x10^3/uL (0.0-1.1); MONO % 9 % (0-9); NEUT # 2.4 x10^3uL (1.8-7.7); NEUT % 46 % (31-73); PLATELET COUNT 182 x10^3/uL (140-400); RED BLOOD COUNT 4.14 x10^6/uL (3.50-5.40); RED CELL DISTRIBUTION WIDTH 14.8 % (11.5-14.5); WHITE BLOOD COUNT 5.2 x10^3/uL (4.0-11.0)
[2017-09-28 03:04] LABS: CALCIUM 8.6 mg/dL (8.5-10.1); CREATININE 0.7 mg/dL (0.6-1.0); GFR 90.9
[2017-09-28 06:22] VITALS: BP 116/73
--- NOTE | 2017-09-28 08:26 | RAD ---
2 view CXR: Clinical indications: Chest pain today. Comparison: July 14, 2017. Findings: No acute lung infiltrate or pleural effusion or pulmonary edema or lung mass or pneumothorax is seen. The heart size, pulmonary vasculature, mediastinum and both selvin are unremarkable. The osseous structures appear intact. Impression: No acute radiographic abnormality is seen.
--- NOTE | 2017-09-28 08:31 | EKG ---
[address] [address] Test Date: 2017-09-27 Test Time: 18:10:56 Pat Name: KALPANA WOODS Department: Room: 121 A Gender: F Storage Battery Charger: PAMELA : [id number] Requested By: NATHANIEL TEJEDA Order Number: [id number] Reading MD: Shawn Hawthorne Measurements Intervals [place] Rate: 79 P: 70 NV: 174 QRS: 52 QRSD: 82 T: 54 QT: 370 QTc: 425 Interpretive Statements SINUS RHYTHM NO SPECIFIC ECG ABNORMALITIES RI6.01 Compared to ECG 07/14/2017 17:50:24 No significant changes Electronically Signed On 09-29-2017 11:49:58 [employer] by Shawn Hawthorne
[2017-09-28 11:00] VITALS: BP 119/79
--- NOTE | 2017-09-28 13:36 | PDOC2 ---
MABLE ALEJANDRO MATERIALS MANAGEMENT CLERK 09/28/17 1336: CONSULT Date of Admission DATE: 09/28/17 TIME: 13:13 Reason for Consult: Chest pain Referring Physician: Dr. Crook Problem List Problems Medical Problems: (1) Chest pain Status: Acute History of Present Illness This is a pleasant 46-year-old female who presented to the Emergency room with chief complaint Of chest pain.She has a past history of Chronic sciatica problems,Anxiety, Asthma,And thyroid problems.Yesterday while she was at work Not doing any particular activity she began having chest discomfort.It felt like pressure in the center for chest and started about 30 minutes after she taken a new pain medication.At first she was just feeling "weird" And I was having a hard time catching her breath.It continued and she felt pressure and when she would take a deep breath It would feel like Fleischmanns poking her.It was associated with nausea, clamminess but no vomiting.It Lasted about three hours and started to make her left arm is numb so she came into the emergency room for evaluation.She can still feel the pressure this morning And is worse with taking a deep breath.She didn't have pneumonia in July but it's not had any type of respiratory infection since then.She has not had any recent fever, chills, Cough.Today she does not feel short of breath or any nausea just the pressure sensation at times.She has felt chest pressure similar in the past but it was not as bad and at that time was anxiety.She is worried about her heart because her family has a long history at early heart disease. Radio of systemsReview of 10 organ systems is negative except for us in HPI. Past medical historyThyroid disease, Asthma, Esophageal strictures, Colitis, Kidney stones, UTI,Anxiety,Chronic sciatic pain. Past surgical history Thyroidectomy, Cholecystectomy And three C-sections Social history She lives at home and works. She denies Any tobacco or drug use Family historyHer father has had three heart attacks, first one before age 55. Hypertension, diabetes and cancer also run In her family. Physical examination Temperature afebrile, Pulse -78, Blood dobalvuj841/84. General appearanceThis is a well-developed white female In no apparent distress. Head And Neck - No carotid bruit, no JVD Eyes Extra ocular movements are intact,No Xanthelasma HeartRhythm and rate were regular.Normal S1 and S2.No S3 S4. Lungs Clear to auscultation ExtremitiesNo swelling, well palpable pedal pulses. AbdomenActive bowel sounds,Nondistended, Nontender Muscular No kyphosis, no scoliosis,No localized tenderness Neurologic Cranial nervesThree through 12 are grossly intact Psych This is a pleasant patient with a normal effects. Impression and plan. Chest painAtypical, First two sets of enzymes are negative and her EKG does not show any ischemic changes.Will plan for an echocardiogram today and if normal wall motion she may be discharged home for an outpatient stress test. Plan to check Fasting lipids.Her risk factor profile is Significant for family history. Current Medications Current Medications Aspirin (Children'S Aspirin) 324 mg 1X ONCE PO Last administered on 09/27/17at 19:31; Start 09/27/17 at 19:00; Stop 09/27/17 at 19:01; Status DC Sodium Chloride 1,000 ml @ 1,000 mls/hr Q1H IV Last administered on 09/27/17at 19:31; Start 09/27/17 at 18:37; Stop 09/27/17 at 19:36; Status DC Iohexol (Omnipaque 300 Mg/ml) 75 ml 1X ONCE IV ; Start 09/27/17 at 19:00; Stop 09/27/17 at 19:01; Status DC Info (Do NOT chart on this entry -- for MONITORING) 1 each PRN DAILY PRN MC SEE COMMENTS; Start 09/27/17 at 19:00; Stop 09/29/17 at 18:59 Fentanyl Citrate (Fentanyl 2ml Vial) 100 mcg 1X ONCE IM Last administered on at 21:00; Start 09/27/17 at 21:00; Stop 09/27/17 at 21:01; Status DC Ketorolac Tromethamine (Toradol) 30 mg 1X ONCE IV Last administered on at 20:59; Start 09/27/17 at 21:00; Stop 09/27/17 at 21:01; Status DC Trimethoprim/ Sulfamethoxazole (Bactrim Ds) 1 tab 1X ONCE PO Last administered on 09/27/17at 23:00; Start 09/27/17 at 23:00; Stop 09/27/17 at 23:01 ; Status DC Potassium Chloride (KCl Oral Soln) 40 meq 1X ONCE PO Last administered on 09/27at 23:00; Start 09/27/17 at 23:00; Stop 09/27/17 at 23:01; Status DC Ondansetron HCl (Zofran) 4 mg STK-MED ONCE .ROUTE ; Start 09/27/17 at 23:14; Stop 09/27/17 at 23:15; Status DC Enoxaparin Sodium (Lovenox 80mg Syringe) 80 mg 1X ONCE SQ Last administered on 09/27/17at 23:30; Start 09/27/17 at 23:30; Stop 09/27/17 at 23:31; Status DC Fentanyl Citrate (Fentanyl 2ml Vial) 100 mcg 1X ONCE IM Last administered on at 23:30; Start 09/27/17 at 23:30; Stop 09/27/17 at 23:31; Status DC Ondansetron HCl (Zofran) 8 mg 1X ONCE IV Last administered on 09/27/17at 23:22 ; Start 09/27/17 at 23:30; Stop 09/27/17 at 23:31; Status DC Ondansetron HCl (Zofran) 4 mg PRN Q4HRS PRN IV NAUSEA/VOMITING; Start 09/27/17 at 23:30; Stop 09/28/17 at 23:29 Fentanyl Citrate (Fentanyl 2ml Vial) 100 mcg 1X ONCE IM ; Start 09/28/17 at 00: 30; Stop 09/28/17 at 00:32; Status DC Active Scripts Active Reported Adipex-P (Phentermine Hcl) 37.5 Mg Tablet 1 Tab PO DAILY Levothyroxine Sodium 150 Mcg Tablet 150 Mcg PO DAILYAC Allergies: Coded Allergies: Penicillins (Verified Allergy, Unknown, 12/07/15) hydrocodone (Verified Allergy, Unknown, 12/07/15) oxycodone (Verified Allergy, Unknown, 12/07/15) VITALS Vital Signs Date Time Temp Pulse Resp B/P (MAP) Pulse Ox O2 Delivery O2 Flow Rate FiO2 09/28/17 11:00 98.1 67 20 119/79 (92) 98 Room Air Labs Laboratory Tests Test 09/27/17 19:00 09/27/17 20:45 09/27/17 20:57 09/28/17 02:50 White Blood Count 4.7 x10^3/uL (4.0-11.0) 5.2 x10^3/uL (4.0-11.0) Red Blood Count 4.13 x10^6/uL (3.50-5.40) 4.14 x10^6/uL (3.50-5.40) Hemoglobin 11.7 g/dL (12.0-15.5) 12.0 g/dL (12.0-15.5) Hematocrit 35.2 % (36.0-47.0) 36.3 % (36.0-47.0) Mean Corpuscular Volume 85 fL (79-100) 88 fL (79-100) Mean Corpuscular Hemoglobin 28 pg (25-35) 29 pg (25-35) Mean Corpuscular Hemoglobin Concent 33 g/dL (31-37) 33 g/dL (31-37) Red Cell Distribution Width 14.3 % (11.5-14.5) 14.8 % (11.5-14.5) Platelet Count 213 x10^3/uL (140-400) 182 x10^3/uL (140-400) Neutrophils (%) (Auto) 50 % (31-73) 46 % (31-73) Lymphocytes (%) (Auto) 36 % (24-48) 40 % (24-48) Monocytes (%) (Auto) 9 % (0-9) 9 % (0-9) Eosinophils (%) (Auto) 4 % (0-3) 4 % (0-3) Basophils (%) (Auto) 1 % (0-3) 1 % (0-3) Neutrophils # (Auto) 2.4 x10^3uL (1.8-7.7) 2.4 x10^3uL (1.8-7.7) Lymphocytes # (Auto) 1.7 x10^3/uL (1.0-4.8) 2.1 x10^3/uL (1.0-4.8) Monocytes # (Auto) 0.4 x10^3/uL (0.0-1.1) 0.5 x10^3/uL (0.0-1.1) Eosinophils # (Auto) 0.2 x10^3/uL (0.0-0.7) 0.2 x10^3/uL (0.0-0.7) Basophils # (Auto) 0.1 x10^3/uL (0.0-0.2) 0.1 x10^3/uL (0.0-0.2) Prothrombin Time 10.2 SEC (9.4-11.4) Prothromb Time International Ratio 1.0 (0.9-1.1) Activated Partial Thromboplast Time 23 SEC (23-33) D-Dimer (Orquidea) 0.34 mg/L (0.00-0.50) Sodium Level 142 mmol/L (136-145) 142 mmol/L (136-145) Potassium Level 3.3 mmol/L (3.5-5.1) 4.0 mmol/L (3.5-5.1) Chloride Level 105 mmol/L (98-107) 106 mmol/L (98-107) Carbon Dioxide Level 30 mmol/L (21-32) 28 mmol/L (21-32) Anion Gap 7 (6-14) 8 (6-14) Blood Urea Nitrogen 17 mg/dL (7-20) 15 mg/dL (7-20) Creatinine 0.7 mg/dL (0.6-1.0) 0.7 mg/dL (0.6-1.0) Estimated GFR (Cockcroft-Gault) 90.9 90.9 Glucose Level 104 mg/dL (70-99) 92 mg/dL (70-99) Calcium Level 8.8 mg/dL (8.5-10.1) 8.6 mg/dL (8.5-10.1) Magnesium Level 1.8 mg/dL (1.8-2.4) Total Bilirubin 0.3 mg/dL (0.2-1.0) Direct Bilirubin 0.1 mg/dL (0.0-0.2) Aspartate Amino Transf (AST/SGOT) 16 U/L (15-37) Alanine Aminotransferase (ALT/SGPT) 21 U/L (14-59) Alkaline Phosphatase 40 U/L (46-116) Creatine Kinase 90 U/L (26-192) Creatine Kinase MB (Mass) 2.1 ng/mL (0.0-3.6) Creatine Kinase MB Relative Index 2.3 % (0-4) Troponin I Quantitative < 0.017 ng/mL (0-0.055) < 0.017 ng/mL (0-0.055) VK-Zxm-Z-Type Natriuretic Peptide 67 pg/mL (0-124) Total Protein 7.1 g/dL (6.4-8.2) Albumin 3.7 g/dL (3.4-5.0) Lipase 206 U/L (73-393) Urine Collection Type Unknown Urine Color Yellow Urine Clarity Cloudy Urine pH 8.0 Urine Specific [place] 1.015 Urine Protein Neg (NEG-TRACE) Urine Glucose (UA) Neg mg/dL (NEG) Urine Ketones (Stick) Neg mg/dL (NEG) Urine Blood Neg (NEG) Urine Nitrite Neg (NEG) Urine Bilirubin Neg (NEG) Urine Urobilinogen Dipstick 0.2 mg/dL (0.2 mg/dL) Urine Leukocyte Esterase Trace (NEG) Urine RBC Occ /HPF (0-2) Urine WBC 1-4 /HPF (0-4) Urine Squamous Epithelial Cells Few /LPF Urine Amorphous Sediment Present /HPF Urine Bacteria Few /HPF (0-FEW) Urine Opiates Screen Neg (NEG) Urine Methadone Screen Neg (NEG) Urine Barbiturates Neg (NEG) Urine Phencyclidine Screen Neg (NEG) Urine Amphetamine/Methamphetamine Neg (NEG) Urine Benzodiazepines Screen Neg (NEG) Urine Cocaine Screen Neg (NEG) Urine Cannabinoids Screen Neg (NEG) Urine Ethyl Alcohol Neg (NEG) Bedside Urine HCG, Qualitative hcg negative (Negative) ASHWIN MCDONALD Jr, MD 09/29/17 0617: CONSULT Allergies: Coded Allergies: Penicillins (Verified Allergy, Unknown, 12/07/15) hydrocodone (Verified Allergy, Unknown, 12/07/15) oxycodone (Verified Allergy, Unknown, 12/07/15) Assessment/Plan The patient was seen by Mable Alejandro APRN and I have reviewed her findings and plan and agree with above. Due to staffing constraints, we did not have an attending available on this day to see the patient. Ashwin Mcdonald Jr., MD Problems: MABLE ALEJANDRO APRN Sep 28, 2017 13:36 ASHWIN MCDONALD Jr, MD Sep 29, 2017 06:17
--- NOTE | 2017-09-28 16:10 | CARD ---
MR#: [id number] Date of Study: 09/28/2017 Ordering Physician: MABLE COREA, Referring Physician: OBDULIA DAEL, Tech: Jennifer Tucker [facility] APPROVED REPORT EXAM: Two-dimensional and M-mode echocardiogram with Doppler and color Doppler. Other Information Quality : Average INDICATION Chest Pain 2D DIMENSIONS Left Atrium(2D)3.0 (1.6-4.0cm)IVSd0.9 (0.7-1.1cm) Aortic Root(2D)2.9 (2.0-3.7cm)LVDd4.3 (3.9-5.9cm) LVOT Diameter2.1 (1.8-2.4cm)PWd0.9 (0.7-1.1cm) LVDs2.4 (2.5-4.0cm)FS (%) 32.0 % SV63.7 mlLVEF(%)65.0 (>50%) Mitral Valve MV E Oipkhrcr111.6cm/sMV DECEL GECA814ak MV A Kvmtdimm78.1cm/sE/A Ratio1.2 LEFT VENTRICLE The left ventricle is normal size. There is normal left ventricular wall thickness. The left ventricu lar systolic function is normal. The Ejection Fraction is 60-65%. There is normal LV segmental wall m otion. RIGHT VENTRICLE The right ventricle is normal size. There is normal right ventricular wall thickness. The right ventr icular systolic function is normal. ATRIA The left atrium size is normal. The right atrium size is normal. The interatrial septum is intact wit h no evidence for an atrial septal defect or patent foramen ovale as noted on 2-D or Doppler imaging. AORTIC VALVE The aortic valve is normal in structure and function. Doppler and Color Flow revealed no significant aortic regurgitation. There is no significant aortic valvular stenosis. MITRAL VALVE The mitral valve is normal in structure and function. There is mild mitral valve prolapse of the ante rior mitral valve leaflet. There is no mitral valve stenosis. Doppler and Color-flow revealed trace m itral regurgitation. TRICUSPID VALVE The tricuspid valve is normal in structure and function. Doppler and Color Flow revealed trace tricus pid regurgitation. There is no tricuspid valve stenosis. PULMONIC VALVE The pulmonary valve is normal in structure and function. Doppler and Color Flow revealed trace to mil d pulmonic valvular regurgitation. There is no pulmonic valvular stenosis. GREAT VESSELS The aortic root is normal in size. The IVC is normal in size and collapses >50% with inspiration. PERICARDIAL EFFUSION There is no pleural effusion. There is no evidence of significant pericardial effusion. Critical Notification Critical Value: No <Conclusion> The left ventricular systolic function is normal. The Ejection Fraction is 60-65%. There is normal LV segmental wall motion. Trace mitral regurgitation. Trace tricuspid regurgitation. There is no evidence of significant pericardial effusion. Signed by : Gregor Gudino, Electronically Approved : 09/28/2017 16:09:46
[2017-09-28] MEDS ORDERED: traMADol 50 MG TABLET PO PRN (18:30)
[2017-09-28 18:35] VITALS: BP 117/78
--- NOTE | 2017-09-28 18:59 | HP ---
ADMIT DATE: 09/27/2017 HISTORY OF PRESENT ILLNESS: A 46-year-old female came in through the Emergency Room with chest pain. The patient notes she started to have pain in her left shoulder radiating down her left arm. The patient notes that she denies any nausea. She also had trouble taking a deep breath and she had some nausea with clamminess, but no vomiting, started about 3 hours prior to admission to the Emergency Room, had some numbness, been having some cough, otherwise basically unremarkable. PAST MEDICAL HISTORY: Thyroid disease, asthma, esophageal strictures, colitis, kidney stone, urinary tract infection, generalized anxiety, chronic sciatica pain. PAST SURGICAL HISTORY: Thyroidectomy, cholecystectomy, and 3 C-sections. SOCIAL HISTORY: The patient denies any tobacco or alcohol use. Works at the [employer]. FAMILY HISTORY: Father has a history of 3 heart attacks, one before the age of 55, hypertension and diabetes as well. HOME MEDICATIONS: Levothyroxine 150 mcg daily and Adipex-P 37.5 mg daily. ALLERGIES: PENICILLIN, HYDROCODONE, OXYCODONE. REVIEW OF SYSTEMS: Denies any headaches, visual changes, blurred vision, double vision. Denies any melena, hematochezia, or hematemesis. Neurologically stable. PHYSICAL EXAMINATION: GENERAL: This is a pleasant white female in moderate amount of distress, looks quite anxious. VITAL SIGNS: Blood pressure 130/70, respiratory 18, pulse 70, afebrile. The patient's oxygen saturation is good. HEENT: The patient's head was atraumatic, normocephalic. Eyes: PERRLA without jaundice. The mouth and throat were normal. NECK: Supple, without JVD, carotid bruits. No thyromegaly. LUNGS: Diminished throughout, poor movement of air. CARDIOVASCULAR: Regular sinus rhythm, S1, S2, without murmur, rub, thrill, or extra heart sounds. ABDOMEN: Soft, nontender. EXTREMITIES: No clubbing, cyanosis, nor edema. NEUROLOGIC: The patient was alert and oriented x 3 with some anxiety. LABORATORY DATA: Blood counts were basically normal. Cardiac enzymes were negative. TSH is unremarkable. ASSESSMENT AND PLAN: In any case, the patient was admitted for rule out myocardial infarction protocol. We will get a stress test, consult with Cardiology make further evaluation on her as indicated per those results. OBDULIA DALE MD DR: Brenda JOB#: [id number] / [id number]
[2017-09-28 19:55] VITALS: BP 113/81
[2017-09-28] MEDS ORDERED: MAGNESIUM HYDROXIDE 2,400 MG/30 ML ORAL.SUSP. PO PRN (21:15)
[2017-09-28] MEDS: DOCUSATE SODIUM 100 MG CAPSULE PO SCH (21:33)
[2017-09-28 22:48] VITALS: BP 114/77
[2017-09-29 05:09] VITALS: BP 113/75
[2017-09-29] MEDS ORDERED: LEVOTHYROXINE 150 MCG TABLET PO SCH (07:30)
[2017-09-29] MEDS: DOCUSATE SODIUM 100 MG CAPSULE PO SCH (08:14)
--- NOTE | 2017-10-07 19:02 | DS ---
DATE OF DISCHARGE: 09/29/2017 HOSPITAL COURSE: The patient is a 46-year-old female came in through the Emergency Room with chest pain. The patient noted it started in the left shoulder radiating down her left arm. The patient denies any nausea, vomiting. She notes to have trouble taking a deep breath. FAMILY HISTORY: Father has history of 3 heart attacks before the age of 55. The patient came in, she was ruled out. Cardiology saw her, made suggestions. The patient's labs are basically unremarkable. Cardiac enzymes were negative. Her HDL was 71. Her LDL was 107. Triglycerides were good. In any case, the patient made good progress during the rest of her hospitalization. There were no complications. Chest x-ray was unremarkable. The patient was discharged home for followup with Cardiology. MEDIATIONS: See EMRAD. ACTIVITIES: Decreased activity. IMPRESSION: Chest pain, unknown etiology, anxiety syndrome. DIET: The patient will be on regular heart healthy diet and decreased activity. OBDULIA DALE MD DR: DEBRA/alvino JOB#: [id number] / [id number]
== END 2017-09-29 09:45 | disposition home or self-care (01) | DRG 313 ==
LOC: ER 17:58 → 1 SOUTH 23:00
PROVIDERS: ADMIT Family Medicine; ATTEND Family Medicine
DX: R07.89 Other chest pain (principal); D64.9 Anemia, unspecified; F32.9 Major depressive disorder, single episode, unspecified; J45.909 Unspecified asthma, uncomplicated; G89.29 Other chronic pain; F41.1 Generalized anxiety disorder; E87.6 Hypokalemia; M54.30 Sciatica, unspecified side; K21.9 Gastro-esophageal reflux disease without esophagitis; Z87.442 Personal history of urinary calculi; Z87.440 Personal history of urinary (tract) infections; Z90.89 Acquired absence of other organs; Z90.49 Acquired absence of other specified parts of digestive tract; Z88.5 Allergy status to narcotic agent; Z88.0 Allergy status to penicillin; Z83.3 Family history of diabetes mellitus; Z82.49 Family history of ischemic heart disease and other diseases of the circulatory system; Z79.899 Other long term (current) drug therapy
CPT/HCPCS: 36415; 71046; 80048; 80061; 80076; 80307; 81001; 81025; 82553; 83690; 83735; 83880; 84443; 84484; 85025; 85379; 85610; 85730; 87086; 93005; 93306; 96361; 96372; 96374; 96375; J1650; J1885; J2405; J3010; 99285-25; G0479; J7030

== ENCOUNTER 2019-07-02 14:05 | Emergency (ER) | payer BC ==
[~2019-07-02] VITALS: Ht 175.3 cm; Wt 95.0 kg
[~2019-07-02 14:05] MED LIST changes: +ALBU2.5V8 IH; -ALBU6.7H IH; +PHEN37.598 PO
[2019-07-02] MEDS ORDERED: IV NORMAL SALINE 1,000ML 1,000 ML IV SCH (14:18)
[2019-07-02 14:35] LABS: BASO # 0.1 x10^3/uL (0.0-0.2); BASO % 1 % (0-3); EOS # 0.3 x10^3/uL (0.0-0.7); EOS % 5 % (0-3); HEMATOCRIT 37.6 % (36.0-47.0); HEMOGLOBIN 12.2 g/dL (12.0-15.5); LYMPH % 31 % (24-48); MEAN CORPUSCULAR HEMOGLOBIN 28 pg (25-35); MEAN CORPUSCULAR HGB CONC 32 g/dL (31-37); MEAN CORPUSCULAR VOLUME 86 fL (79-100); MONO # 0.6 x10^3/uL (0.0-1.1); MONO % 9 % (0-9); NEUT # 3.5 x10^3uL (1.8-7.7); NEUT % 54 % (31-73); PLATELET COUNT 254 x10^3/uL (140-400); RED BLOOD COUNT 4.38 x10^6/uL (3.50-5.40); RED CELL DISTRIBUTION WIDTH 14.3 % (11.5-14.5); WHITE BLOOD COUNT 6.5 x10^3/uL (4.0-11.0)
--- NOTE | 2019-07-02 14:43 | RAD ---
EXAM: CHEST 2 VIEWS. HISTORY: Cough. COMPARISON: 09/27/2017. FINDINGS: Frontal and lateral views of the chest are obtained. There are no confluent infiltrates. There is no pneumothorax or pleural effusion. The heart is not enlarged. Cholecystectomy clips are noted. IMPRESSION: 1. No confluent infiltrates. Electronically signed by: Robbin Marc MD (07/02/2019 2:40 PM) [facility]
[2019-07-02 15:01] LABS: ALBUMIN 3.9 g/dL (3.4-5.0); ALBUMIN/GLOBULIN RATIO 1.2 (1.0-1.7); CALCIUM 8.9 mg/dL (8.5-10.1); CREATININE 0.7 mg/dL (0.6-1.0); GFR 90.1; TOTAL BILIRUBIN 0.2 mg/dL (0.2-1.0); TOTAL PROTEIN 7.1 g/dL (6.4-8.2)
--- NOTE | 2019-07-02 15:08 | PHYS DOC ---
Past History Past Medical History: Anxiety, Depression, Endometriosis, GERD, Kidney Stones, UTI, Other Past Surgical History: Cholecystectomy, , Tonsillectomy, Other Smoking: Non-smoker Alcohol Use: Occasionally Drug Use: None Adult General Chief Complaint Chief Complaint: MULTIPLE COMPLAINTS [facility] HPI Patient is a 48-year-old female who presents with complaint of coughing, chest discomfort and shortness of breath for the last week. She states that her cough is been productive of green sputum. She states that she started having some upper respiratory symptoms a couple of weeks back and initially she had a lot of nasal drainage but now it's all cough. She states that she is really getting a lot of mucus up with her cough. She denies any fever. She does indicate that she has some pain in her left shoulder. She states that symptoms are worsened in the cold and with exertion. She denies any nausea, vomiting or diaphoresis.[] Review of Systems Review of Systems Constitutional: Denies fever or chills [] Respiratory: Positive cough and shortness of breath [] Cardiovascular: No additional information not addressed in HPI [] GI: Denies abdominal pain, nausea, vomiting or diarrhea [] Integument: Denies rash or skin lesions [] Neurologic: Denies headache, focal weakness or sensory changes [] All other systems were reviewed and found to be within normal limits, except as documented in this note. Current Medications Current Medications Current Medications Medications (Trade) Dose Ordered Sig/[facility] Start Time Stop Time Status Last Admin Dose Admin Sodium Chloride 1,000 ml @ 1,000 mls/hr Q1H 07/02/19 14:18 07/02/19 15:17 07/02/19 14:18 1,000 MLS/HR Allergies Allergies Allergies Coded Allergies Type Severity Reaction Last Updated Verified Penicillins Allergy Unknown 12/07/15 Yes hydrocodone Allergy Unknown 12/07/15 Yes oxycodone Allergy Unknown 12/07/15 Yes Physical Exam Physical Exam Constitutional: Well developed, well nourished, no acute distress, non-toxic appearance. [] HENT: Normocephalic, atraumatic, bilateral external ears normal, oropharynx moist, no oral exudates, nose normal. [] Eyes: PERRLA, EOMI, conjunctiva normal, no discharge. [] Neck: Normal range of motion, no tenderness, supple. [] Cardiovascular: Regular rate and rhythm[] Lungs & Thorax: Fine rhonchi are noted bilaterally to auscultation [] Abdomen: Bowel sounds normal, soft, no tenderness. [] Skin: Warm, dry, no erythema, no rash. [] Extremities: No tenderness, no cyanosis, no clubbing, ROM intact, no edema. [] Neurologic: Alert and oriented X 3, no focal deficits noted. [] Current Patient Data Vital Signs Vital Signs Date Time Temp Pulse Resp B/P (MAP) Pulse Ox O2 Delivery O2 Flow Rate FiO2 07/02/19 14:13 98.4 72 18 100 Room Air Lab Results Laboratory Tests Test 07/02/19 14:25 White Blood Count 6.5 x10^3/uL (4.0-11.0) Red Blood Count 4.38 x10^6/uL (3.50-5.40) Hemoglobin 12.2 g/dL (12.0-15.5) Hematocrit 37.6 % (36.0-47.0) Mean Corpuscular Volume 86 fL (79-100) Mean Corpuscular Hemoglobin 28 pg (25-35) Mean Corpuscular Hemoglobin Concent 32 g/dL (31-37) Red Cell Distribution Width 14.3 % (11.5-14.5) Platelet Count 254 x10^3/uL (140-400) Neutrophils (%) (Auto) 54 % (31-73) Lymphocytes (%) (Auto) 31 % (24-48) Monocytes (%) (Auto) 9 % (0-9) Eosinophils (%) (Auto) 5 % (0-3) H Basophils (%) (Auto) 1 % (0-3) Neutrophils # (Auto) 3.5 x10^3uL (1.8-7.7) Lymphocytes # (Auto) 2.0 x10^3/uL (1.0-4.8) Monocytes # (Auto) 0.6 x10^3/uL (0.0-1.1) Eosinophils # (Auto) 0.3 x10^3/uL (0.0-0.7) Basophils # (Auto) 0.1 x10^3/uL (0.0-0.2) Troponin I Quantitative < 0.017 ng/mL (0-0.055) EKG EKG [] Radiology/Procedures Radiology/Procedures [] Impressions: PROCEDURE: CHEST PA & LATERAL EXAM: CHEST 2 VIEWS. HISTORY: Cough. COMPARISON: 09/27/2017. FINDINGS: Frontal and lateral views of the chest are obtained. There are no confluent infiltrates. There is no pneumothorax or pleural effusion. The heart is not enlarged. Cholecystectomy clips are noted. IMPRESSION: 1. No confluent infiltrates. Electronically signed by: Robbin Marc MD (07/02/2019 2:40 PM) [facility] DICTATED AND SIGNED BY: FAISAL MARC MD DATE: 07/02/19 1440 CC: ANGEL FRENCH Jr. DO; LILIANA Course & Med Decision Making Course & Med Decision Making Pertinent Labs and Imaging studies reviewed. (See chart for details) [] Dragon Disclaimer Dragon Disclaimer This electronic medical record was generated, in whole or in part, using a voice recognition dictation system. Departure Departure: Impression: Primary Impression: Acute bronchitis Disposition: 01 HOME, SELF-CARE Condition: STABLE Referrals: OBDULIA DALE MD (PCP) Patient Instructions: Acute Bronchitis Scripts Guaifenesin/Codeine Phosphate (Codeine-Guaifen 10-100 mg/5 ml) 120 Ml Liquid 5 ML PO PRN Q6HRS PRN for cough and congestion MDD 20 Milliliter(s) for 6 Days, #120 ML 0 Refills Prov: ANGEL FRENCH Jr. DO 07/02/19 Azithromycin (ZITHROMAX) 250 Mg Tablet 1 PKG PO UD for infection, #6 TAB Prov: ANGEL FRENCH Jr. DO 07/02/19 Problem Qualifiers Primary Impression: Acute bronchitis Bronchitis organism: unspecified organism Qualified Codes: J20.9 - Acute bronchitis, unspecified ANGEL FRENCH Jr. DO Jul 02, 2019 15:08
[2019-07-02 15:44] VITALS: BP 130/68
[2019-07-02] MEDS ORDERED: GUAI120L35 PO (15:46)
[2019-07-02] MEDS ORDERED: AZIT250T PO (15:46)
[2019-07-02 15:58] LABS: BILIRUBIN,URINE NEG (NEG); CLARITY,URINE CLEAR; COLOR,URINE STRAW; GLUCOSE,URINE NEG (NEG); NITRITE,URINE NEG (NEG); RBC,URINE OCC /HPF (0-2); UROBILINOGEN,URINE 0.2 mg/dL (0.2 mg/dL)
[2019-07-02 15:59] LABS: BACTERIA,URINE MOD /HPF (0-FEW); SQUAMOUS EPITHELIAL CELL,UR FEW /LPF
--- NOTE | 2019-07-03 01:56 | EKG ---
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
== END 2019-07-02 15:52 | disposition home or self-care (01) ==
LOC: ER 14:05
DX: J20.9 Acute bronchitis, unspecified (principal); K21.9 Gastro-esophageal reflux disease without esophagitis; Z87.442 Personal history of urinary calculi; Z87.440 Personal history of urinary (tract) infections; Z88.0 Allergy status to penicillin; Z88.5 Allergy status to narcotic agent
CPT/HCPCS: 36415; 71046; 80053; 81001; 83880; 84484; 85025; 87086; 93005; 99285-25; J7030

== ENCOUNTER 2020-04-28 22:22 | Emergency (ER) | payer BC ==
[~2020-04-28] VITALS: Ht 175.3 cm; Wt 93.0 kg
[~2020-04-28 22:22] MED LIST changes: +GUAI120L35 PO
[2020-04-28] MEDS ORDERED: ONDANSETRON PF 4 MG/2 ML VIAL. IVP ONE (23:00)
[2020-04-28] MEDS ORDERED: MORPHINE SULFATE 10 MG/ML SYRINGE. SQ ONE ×2 (23:00)
[2020-04-28] MEDS ORDERED: IV RINGERS SOLUTION,LACTATED 1,000 ML IV SCH (23:00)
[2020-04-28 23:13] LABS: BASO # 0.1 x10^3/uL (0.0-0.2); BASO % 1 % (0-3); EOS # 0.3 x10^3/uL (0.0-0.7); EOS % 5 % (0-3); HEMATOCRIT 37.2 % (36.0-47.0); HEMOGLOBIN 12.4 g/dL (12.0-15.5); LYMPH # 2.7 x10^3/uL (1.0-4.8); LYMPH % 40 % (24-48); MEAN CORPUSCULAR HEMOGLOBIN 28 pg (25-35); MEAN CORPUSCULAR HGB CONC 33 g/dL (31-37); MEAN CORPUSCULAR VOLUME 83 fL (79-100); MONO # 0.7 x10^3/uL (0.0-1.1); MONO % 10 % (0-9); NEUT # 2.9 x10^3uL (1.8-7.7); NEUT % 44 % (31-73); PLATELET COUNT 298 x10^3/uL (140-400); RED BLOOD COUNT 4.51 x10^6/uL (3.50-5.40); RED CELL DISTRIBUTION WIDTH 14.3 % (11.5-14.5); WHITE BLOOD COUNT 6.7 x10^3/uL (4.0-11.0)
[2020-04-28 23:14] LABS: CALCIUM 10.4 mg/dL (8.5-10.1); CREATININE 0.9 mg/dL (0.6-1.0); GFR 67.1; POTASSIUM 3.7 mmol/L (3.5-5.1)
[2020-04-28 23:26] LABS: ALBUMIN 4.1 g/dL (3.4-5.0); DIRECT BILIRUBIN 0.1 mg/dL (0.0-0.2); TOTAL BILIRUBIN 0.3 mg/dL (0.2-1.0); TOTAL PROTEIN 7.9 g/dL (6.4-8.2)
--- NOTE | 2020-04-28 23:38 | PHYS DOC ---
Past History Past Medical History: Anxiety, Depression, Endometriosis, Fibromyalgia, GERD, Hypothyroid, Kidney Stones, Ovarian Cyst, UTI, Other Past Medical History Multiple sclerosis Past Surgical History: Cholecystectomy, , Tonsillectomy, Other Past Surgical History Thyroid ectomy Smoking: Non-smoker Alcohol Use: Occasionally Drug Use: Marijuana General Adult EDM: Chief Complaint: FLANK PAIN HPI: HPI: ".. I hurting so bad.. It making me puke.. It like a kidney stone.. but this is really bad tonight..." Patient is a 49 year old female who presents with above hx and complaints of severe Rt. flank pain she states feels like a kidney stone that is trying to pass. Patient complaining of nausea and vomiting. Patient denies any intake bad food. Patient relates pain started higher in her right flank and now is right lower flank on the right. No history of trauma. No recent travel outside the [facility]. Patient no history specific ill contacts.. . Does have extensive history of fibromyalgia, kidney stones, , polycystic ovary disease, multiple sclerosis, arthritis, obesity, chronic pain, and GERD, esophageal strictures, colitis, urinary tract infections, anxiety, chronic sciatic pain, and deconditioning. Patient has previous surgeries of thyroidectomy cholecys tectomy and 3 C-sections. Patient has had many miscarriages. Did have 4 live births. History of endometriosis. No recent travel outside [facility]. No specific ill contacts. Normally in the past with follow-up with Dr. Dale. Patient follows at for her MS evaluations. Last MRI showed multiple skip lesions in September and her MRI of the spine also showed multiple skip lesions. Patient not currently on any immunosuppressants or steroids. Confirm diagnosis with 2015 by MRI and spinal fluid. At . Pt take marijuana chews for exacerbation of her chronic pain. Review of Systems: Review of Systems: Constitutional: Denies fever or chills Eyes: Denies change in visual acuity HENT: Denies nasal congestion or sore throat Respiratory: Denies cough or shortness of breath Cardiovascular: Denies chest pain or edema GI: Complains of abdominal pain, nausea, vomiting. Denies, bloody stools or diarrhea : Denies dysuria Musculoskeletal: Complains of chronic back pain and joint pain Integument: Denies rash Neurologic: Denies headache, focal weakness or sensory changes Endocrine: Denies polyuria or polydipsia Lymphatic: Denies swollen glands Psychiatric: Denies depression or anxiety Heart Score: HEART Score for Chest Pain: HEART Score for Chest Pain Response (Comments) Value History Slighlty/Non-Suspicious 0 ECG Normal 0 Age >45 - < 65 1 Risk Factors 1 or 2 Risk Factors 1 Troponin < Normal Limit 0 Total 2 Risk Factors: Risk Factors: DM, Current or recent (<one month) smoker, HTN, HLP, family history of CAD, obesity. Risk Scores: Score 0 - 3: 2.5% MACE over next 6 weeks - Discharge Home Score 4 - 6: 20.3% MACE over next 6 weeks - Admit for Clinical Observation Score 7 - 10: 72.7% MACE over next 6 weeks - Early Invasive Strategies Family History: Family History: Father had a history of 3 heart attacks one before the age of 55. There is family history of hypertension and diabetes Current Medications: Current Meds: Current Medications Medications (Trade) Dose Ordered Sig/Segun Start Time Stop Time Status Last Admin Dose Admin Lactated Ringer's 1,000 ml @ 1,000 mls/hr Q1H 04/28/20 23:00 04/28/20 23:59 04/28/20 23:06 1,000 MLS/HR Morphine Sulfate (Morphine 10mg Syringe) 10 mg 1X ONCE 04/28/20 23:00 04/28/20 23:01 UNV Ondansetron HCl (Zofran) 8 mg 1X ONCE 04/28/20 23:00 04/28/20 23:03 DC 04/28/20 23:06 8 MG Allergies: Allergies: Allergies Coded Allergies Type Severity Reaction Last Updated Verified Penicillins Allergy Unknown 12/07/15 Yes hydrocodone Allergy Unknown 12/07/15 Yes oxycodone Allergy Unknown 12/07/15 Yes Physical Exam: PE: Constitutional: in acute distress, non-toxic appearance. Currently rating pain 10 out of 10. HENT: Normocephalic, atraumatic, bilateral external ears normal, oropharynx moist, no oral exudates, nose normal. [] Eyes: PERRLA, EOMI, conjunctiva normal, no discharge. [] Neck: Normal range of motion, no tenderness, supple, no stridor. [] Cardiovascular:Heart rate regular rhythm, no murmur [] Lungs & Thorax: Bilateral breath sounds equal apex with some basilar crackles o auscultation [] Abdomen: Bowel sounds decreased , soft, right flank and lower abdomen tenderness, no masses, no pulsatile masses. Obese. Mild rebound to the right flank. Old surgical scars. Patient has right CVA tenderness on percussion where it radiates to her right groin. Skin: Warm, dry, no erythema, no rash. [] Back: No tenderness, Rt CVA tenderness. [] Scoliosis Extremities: No tenderness, no cyanosis, no clubbing, ROM intact, no edema. No psoas sign. Neurologic: Alert and oriented X 3, normal motor function, normal sensory function, no focal deficits noted. [] Psychologic: Affect anxious l, judgement normal, mood normal. [] Current Patient Data: Labs: Laboratory Tests Test 04/28/20 22:50 White Blood Count 6.7 x10^3/uL (4.0-11.0) Red Blood Count 4.51 x10^6/uL (3.50-5.40) Hemoglobin 12.4 g/dL (12.0-15.5) Hematocrit 37.2 % (36.0-47.0) Mean Corpuscular Volume 83 fL (79-100) Mean Corpuscular Hemoglobin 28 pg (25-35) Mean Corpuscular Hemoglobin Concent 33 g/dL (31-37) Red Cell Distribution Width 14.3 % (11.5-14.5) Platelet Count 298 x10^3/uL (140-400) Neutrophils (%) (Auto) 44 % (31-73) Lymphocytes (%) (Auto) 40 % (24-48) Monocytes (%) (Auto) 10 % (0-9) H Eosinophils (%) (Auto) 5 % (0-3) H Basophils (%) (Auto) 1 % (0-3) Neutrophils # (Auto) 2.9 x10^3uL (1.8-7.7) Lymphocytes # (Auto) 2.7 x10^3/uL (1.0-4.8) Monocytes # (Auto) 0.7 x10^3/uL (0.0-1.1) Eosinophils # (Auto) 0.3 x10^3/uL (0.0-0.7) Basophils # (Auto) 0.1 x10^3/uL (0.0-0.2) Prothrombin Time 9.9 SEC (9.4-11.4) Prothrombin Time INR 1.0 (0.9-1.1) Activated Partial Thromboplast Time 22 SEC (23-33) L Sodium Level 141 mmol/L (136-145) Potassium Level 3.7 mmol/L (3.5-5.1) Chloride Level 103 mmol/L (98-107) Carbon Dioxide Level 28 mmol/L (21-32) Anion Gap 10 (6-14) Blood Urea Nitrogen 14 mg/dL (7-20) Creatinine 0.9 mg/dL (0.6-1.0) Estimated GFR (Cockcroft-Gault) 67.1 Glucose Level 107 mg/dL (70-99) H Calcium Level 10.4 mg/dL (8.5-10.1) H Magnesium Level 2.0 mg/dL (1.8-2.4) Total Bilirubin 0.3 mg/dL (0.2-1.0) Direct Bilirubin 0.1 mg/dL (0.0-0.2) Aspartate Amino Transferase (AST) 23 U/L (15-37) Alanine Aminotransferase (ALT) 44 U/L (14-59) Alkaline Phosphatase 74 U/L (46-116) Troponin I Quantitative 0.020 ng/mL (0-0.055) YW-Pjc-J-Type Natriuretic Peptide 153 pg/mL (0-124) H Total Protein 7.9 g/dL (6.4-8.2) Albumin 4.1 g/dL (3.4-5.0) Amylase Level 60 U/L (25-115) Lipase 139 U/L (73-393) Vital Signs: Vital Signs Date Time Temp Pulse Resp B/P (MAP) Pulse Ox O2 Delivery O2 Flow Rate FiO2 04/28/20 23:06 18 99 Room Air EKG: EKG: My interpretation EKG shows a sinus rhythm at 66 bpm. No findings of acute STEMI with contralateral changes. Essentially normal EKG [] Radiology/Procedures: Radiology/Procedures: [][address] [address] IMAGING REPORT Signed PATIENT: KALPANA WOODS ACCOUNT: [id number] : 1970 LOCATION: ER AGE: 49 SEX: F EXAM STATUS: REG ER ORD. PHYSICIAN: NATHANIEL TEJEDA MD REASON: pain PROCEDURE: CT ABDOMEN PELVIS WO CONTRAST CT scan of the abdomen and pelvis without contrast 04/28/2020 CLINICAL HISTORY: Abdominal pain. TECHNIQUE: Unenhanced, contiguous, 3 mm axial sections were obtained through abdomen and pelvis. One or more of the following individualized dose reduction techniques were utilized for this study: 1. Automated exposure control. 2. Adjustment of the mA and/or kV according to patient size. 3. Use of iterative reconstruction technique. FINDINGS: Comparison study is dated 03/19/2017. Images through the lung bases demonstrate minimal dependent subsegmental atelectasis bilaterally. The liver, spleen, pancreas, adrenal glands and right kidney are within normal limits. Nonobstructing calculi are seen involving the lower pole left kidney. These measure 2-4 mm in size. The abdominal aorta tapers normally. Surgical clips are seen within the gallbladder fossa consistent with a cholecystectomy. No free fluid or free air is seen within the abdomen. There is no evidence of bowel obstruction. The appendix is well-visualized and is within normal limits. Images through the pelvis demonstrate the urinary bladder to be contracted. Calcifications are seen within the pelvis consistent with phleboliths. No free fluid is seen. Minimal S-shaped curvature of the thoracolumbar spine is noted. IMPRESSION: No acute abnormality is seen. Electronically signed by: Enrique Griffin MD (04/29/2020 12:16 AM) [id number] DICTATED AND SIGNED BY: ENRIQUE GRIFFIN MD DATE: 04/29/20 0016 CC: OBDULIA DALE MD; NATHANIEL TEJEDA MD ~ Course & Med Decision Making: Course & Med Decision Making Pertinent Labs and Imaging studies reviewed. (See chart for details) Patient stay on clear fluid diet only for the next 2 days. No solids no milk products. Clear fluids only Jell-O since 7 Pedialyte sweet tea Coca-Cola etc. May take Zofran 8 mg up to 4 times a day for active vomiting. Take Levaquin 500 mg a day for next 5 days. Must follow-up urine cultures. If continued problems will need to present to the hospital and has urology services. If marked pain may need stent placement. Keep follow-up with Dr. Beavers. Follow-up urine cultures. Return if any concerns. Marked pain may take Vicoprofen up to 4 times a day. Impression: 1. Abdomen pain 2. Nausea and vomiting 3. Renal colic right 4. Possible UTI-we will cover with antibiotics due to patient's MS 5. History of multiple sclerosis [] Dragon Disclaimer: Dragon Disclaimer: This electronic medical record was generated, in whole or in part, using a voice recognition dictation system. Departure Departure: Disposition: HOME/RESIDENCE PRIOR TO ADM Condition: STABLE Referrals: OBDULIA DALE MD (PCP) Scripts Levofloxacin (LEVOFLOXACIN) 500 Mg Tablet 500 MG PO DAILY for uti for 5 Days, #5 TAB Prov: NATHANIEL TEJEDA MD 04/29/20 Ondansetron Hcl (ZOFRAN) 8 Mg Tablet 8 MG PO QIDPRN PRN for Active nausea and vomiting, #5 BOT Prov: NATHANIEL TEJEDA MD 04/29/20 Hydrocodone/Ibuprofen (HYDROCODONE-IBUPROFEN 7.5-200 ) 1 Each Tablet 1 TAB PO PRN Q6HRS PRN for PAIN, #30 TAB 0 Refills Prov: NATHANIEL TEJEDA MD 04/29/20 Justification of Admission: Justification of Admission: Justification of Admission Dx: N/A Dragon Disclaimer This chart was dictated in whole or in part using Voice Recognition software in a busy, high-work load, and often noisy Emergency Department environment. It may contain unintended and wholly unrecognized errors or omissions. Dragon Disclaimer This chart was dictated in whole or in part using Voice Recognition software in a busy, high-work load, and often noisy Emergency Department environment. It may contain unintended and wholly unrecognized errors or omissions. Dragon Disclaimer This chart was dictated in whole or in part using Voice Recognition software in a busy, high-work load, and often noisy Emergency Department environment. It may contain unintended and wholly unrecognized errors or omissions. NATHANIEL TEJEDA MD Apr 28, 2020 23:38
[2020-04-28 23:40] LABS: BARBITURATES NEG (NEG); BENZODIAZEPINES NEG (NEG); CANNABINOIDS POS (NEG); COCAINE NEG (NEG); METHADONE NEG (NEG); OPIATES NEG (NEG); PHENCYCLIDINE NEG (NEG)
[2020-04-28 23:41] LABS: BACTERIA,URINE 0 /HPF (0-FEW); BILIRUBIN,URINE NEG (NEG); CLARITY,URINE CLEAR; COLOR,URINE YELLOW; GLUCOSE,URINE NEG (NEG); NITRITE,URINE NEG (NEG); RBC,URINE 0 /HPF (0-2); SQUAMOUS EPITHELIAL CELL,UR OCC /LPF; UROBILINOGEN,URINE 0.2 mg/dL (0.2 mg/dL)
[2020-04-28 23:42] LABS: AMPHETAMINE/METHAMPHETAMINE NEG (NEG)
[2020-04-29 00:02] LABS: U PREG PATIENT NEGATIVE (NEG)
--- NOTE | 2020-04-29 00:18 | RAD ---
CT scan of the abdomen and pelvis without contrast 04/28/2020 CLINICAL HISTORY: Abdominal pain. TECHNIQUE: Unenhanced, contiguous, 3 mm axial sections were obtained through abdomen and pelvis. One or more of the following individualized dose reduction techniques were utilized for this study: 1. Automated exposure control. 2. Adjustment of the mA and/or kV according to patient size. 3. Use of iterative reconstruction technique. FINDINGS: Comparison study is dated 03/19/2017. Images through the lung bases demonstrate minimal dependent subsegmental atelectasis bilaterally. The liver, spleen, pancreas, adrenal glands and right kidney are within normal limits. Nonobstructing calculi are seen involving the lower pole left kidney. These measure 2-4 mm in size. The abdominal aorta tapers normally. Surgical clips are seen within the gallbladder fossa consistent with a cholecystectomy. No free fluid or free air is seen within the abdomen. There is no evidence of bowel obstruction. The appendix is well-visualized and is within normal limits. Images through the pelvis demonstrate the urinary bladder to be contracted. Calcifications are seen within the pelvis consistent with phleboliths. No free fluid is seen. Minimal S-shaped curvature of the thoracolumbar spine is noted. IMPRESSION: No acute abnormality is seen. Electronically signed by: Enrique Griffin MD (04/29/2020 12:16 AM) [id number]
[2020-04-29] MEDS ORDERED: KETOROLAC 30 MG/ML VIAL. IVP ONE (00:30)
[2020-04-29] MEDS ORDERED: ONDA8TAB9 PO (00:53)
[2020-04-29] MEDS ORDERED: HYDR-1179 PO (00:53)
[2020-04-29] MEDS ORDERED: ONDANSETRON PF 4 MG/2 ML VIAL. IVP ONE (01:00)
[2020-04-29] MEDS ORDERED: MORPHINE SULFATE 10 MG/ML SYRINGE. SQ ONE (01:00)
[2020-04-29] MEDS ORDERED: levoFLOXacin 500 MG TABLET PO ONE (01:00)
[2020-04-29] MEDS ORDERED: LEVO500T8 PO (01:29)
[2020-04-29 01:38] VITALS: BP 146/84
--- NOTE | 2020-04-29 06:51 | EKG ---
[address] [address] Test Date: 2020-04-28 Test Time: 23:54:52 Pat Name: KALPANA WOODS Department: Room: Gender: F Setter Machine: : 1970 Requested By: NATHANIEL TEJEDA Order Number: [id number] Reading MD: Measurements Intervals [place] Rate: 66 P: 58 CO: 170 QRS: 26 QRSD: 86 T: 21 QT: 392 QTc: 413 Interpretive Statements SINUS RHYTHM NORMAL ECG RI6.02 No previous ECG available for comparison
--- NOTE | 2020-04-29 08:02 | RAD ---
INDICATION: Reason: abdome pain / Spl. Instructions: / History: COMPARISON: None. IMPRESSION: Abdomen: 3 views of the chest and abdomen obtained. Mild interstitial prominence is again seen throughout the bilateral lungs without a definite new region of airspace consolidation. Cardiac silhouette is not enlarged. Degenerative changes the spine. Air scattered throughout the large and small bowel in a nonspecific but not grossly obstructive pattern. Calcification at left renal shadow. Could be from a small stone. Electronically signed by: Mike Soliman MD (04/29/2020 7:59 AM) [id number]
== END 2020-04-29 01:40 | disposition home or self-care (01) ==
LOC: ER 22:22
DX: N23 Unspecified renal colic (principal); G35 Multiple sclerosis; R11.2 Nausea with vomiting, unspecified; G89.29 Other chronic pain; M79.7 Fibromyalgia; K21.9 Gastro-esophageal reflux disease without esophagitis; E03.9 Hypothyroidism, unspecified; E28.2 Polycystic ovarian syndrome; Z87.442 Personal history of urinary calculi; Z87.440 Personal history of urinary (tract) infections; Z90.49 Acquired absence of other specified parts of digestive tract; Z98.890 Other specified postprocedural states; Z88.0 Allergy status to penicillin; Z88.5 Allergy status to narcotic agent
CPT/HCPCS: 36415; 74022; 74176; 80048; 80076; 80307; 81001; 81025; 82150; 83690; 83735; 83880; 84443; 84484; 85025; 85610; 85730; 86705; 86709; 86803; 87086; 87340; 93005; 96361; 96372; 96374; 96375; 96376; 99285; J1885; J2270; J2405; J7120; 96360

== ENCOUNTER 2020-06-30 16:32 | Emergency (ER) | payer BC ==
[~2020-06-30] VITALS: Ht 177.8 cm; Wt 90.0 kg
[~2020-06-30 16:32] MED LIST changes: +HYDR-1179 PO; +LEVO500T8 PO; +ONDA8TAB9 PO
--- NOTE | 2020-06-30 17:01 | EKG ---
[facility] ED [facility] [address] [place] [id number] Test Date: 2020-06-30 Test Time: 16:56:37 Pat Name: KALPANA WOODS Department: Room: Gender: F Youth Coordinator: : 1970 Requested By: OBDULIA BEAVER Order Number: [id number] Reading MD: Measurements Intervals [place] Rate: 76 P: 33 WV: 164 QRS: 7 QRSD: 82 T: 14 QT: 380 QTc: 427 Interpretive Statements SINUS RHYTHM LEFT ATRIAL ABNORMALITY INCOMPLETE RIGHT BUNDLE BRANCH BLOCK ABNORMAL ECG RI6.02 No previous ECG available for comparison
[2020-06-30 17:06] LABS: BASO # 0.1 x10^3/uL (0.0-0.2); BASO % 1 % (0-3); EOS # 0.2 x10^3/uL (0.0-0.7); EOS % 4 % (0-3); HEMATOCRIT 38.2 % (36.0-47.0); HEMOGLOBIN 12.2 g/dL (12.0-15.5); LYMPH % 34 % (24-48); MEAN CORPUSCULAR HEMOGLOBIN 27 pg (25-35); MEAN CORPUSCULAR HGB CONC 32 g/dL (31-37); MEAN CORPUSCULAR VOLUME 83 fL (79-100); MONO # 0.5 x10^3/uL (0.0-1.1); MONO % 9 % (0-9); NEUT % 52 % (31-73); PLATELET COUNT 273 x10^3/uL (140-400); RED BLOOD COUNT 4.59 x10^6/uL (3.50-5.40); RED CELL DISTRIBUTION WIDTH 14.6 % (11.5-14.5); WHITE BLOOD COUNT 5.8 x10^3/uL (4.0-11.0)
--- NOTE | 2020-06-30 17:10 | RAD ---
Chest AP portable 06/30/2020. Reason for exam: Chest pain. Comparison is made with a study of 07/02/2019. No infiltrate or effusion is seen. Heart size and pulmonary vascularity appear normal. IMPRESSION: No acute disease. Electronically signed by: Shawn Chandler Jr., MD (06/30/2020 5:08 PM) [facility]
[2020-06-30 17:16] LABS: CALCIUM 9.6 mg/dL (8.5-10.1); CREATININE 0.8 mg/dL (0.6-1.0); GFR 76.9; POTASSIUM 3.3 mmol/L (3.5-5.1)
[2020-06-30 17:29] LABS: ALBUMIN/GLOBULIN RATIO 1.1 (1.0-1.7); TOTAL BILIRUBIN 0.2 mg/dL (0.2-1.0); TOTAL PROTEIN 7.8 g/dL (6.4-8.2)
--- NOTE | 2020-06-30 17:34 | RAD ---
CT head without contrast 06/30/2020. Reason for exam: Headache. Hypertension. Noncontrast images were performed. Exposure: One or more of the following individualized dose reduction techniques were utilized for this examination: 1. Automated exposure control 2. Adjustment of the mA and/or kV according to patient size 3. Use of iterative reconstruction technique. Comparison is made with a prior study of 02/05/2007. Only some of the images couldn't be retrieved from that exam. There is no apparent intracranial mass, hemorrhage or abnormal extra-axial fluid collection. No area of abnormal density is seen in the brain. The ventricles and basilar cisterns are normally positioned. The sinuses and mastoid air cells appear clear. IMPRESSION: No evidence of acute abnormality. Electronically signed by: Shawn Chandler Jr., MD (06/30/2020 5:31 PM) [facility]
--- NOTE | 2020-06-30 17:44 | PHYS DOC ---
Past History Past Medical History: Anxiety, Depression, Endometriosis, Fibromyalgia, GERD, Hypothyroid, Kidney Stones, Ovarian Cyst, UTI, Other (OBDULIA BEAVER DO) Past Surgical History: Cholecystectomy, , Tonsillectomy, Other Additional Past Surgical Histo: thyroidectomy (OBDULIA BEAVER DO) Smoking: Non-smoker Alcohol Use: Occasionally Drug Use: Marijuana (OBDULIA BEAVER DO) General Adult EDM: Chief Complaint: CHEST PAIN HPI: HPI: Patient is a 49-year-old female with history of hypothyroidism, fibromyalgia presented to ER for 4-day history of headache. Patient feels like the is a VISE that squeezed on her head. Patient checked her blood pressure and it was elevated at home. Patient denies any history of hypertension. Patient said the light really bother her head. Patient denies any history of migraine headache in the past. Patient denies any cough or fever. Patient started having substernal chest pain when she woke up this morning. She denies any weakness or numbness in her extremity. Patient denies any trouble breathing, denies any radiation of the chest pain to anywhere. Patient denies any abdominal pain, no urinary symptom. Patient denies being exposed to anybody who tested positive for COVID-19. Patient says she has fibromyalgia so sometimes she smoked marijuana to help with the pain. Patient denies any blurry vision. Patient has no history of diabetes or high cholesterol. Her father had a history of [place] at age 65. She denies any history of blood clot disorder,, no history of aneurysm. She denies any recent travel or operation. (OBDULIA BEAVER DO) Review of Systems: Review of Systems: Constitutional: Denies fever or chills Eyes: Denies change in visual acuity HENT: Denies nasal congestion or sore throat Respiratory: Denies cough or shortness of breath Cardiovascular: Positive for chest pain, no edema GI: Denies abdominal pain, nausea, vomiting, bloody stools or diarrhea : Denies dysuria Musculoskeletal: Denies back pain or joint pain Integument: Denies rash Neurologic: Positive for headache, no focal weakness or sensory changes Endocrine: Denies polyuria or polydipsia Lymphatic: Denies swollen glands Psychiatric: Denies depression or anxiety (OBDULIA BEAVER DO) Allergies: Allergies: Allergies Coded Allergies Type Severity Reaction Last Updated Verified Penicillins Allergy Unknown 12/07/15 Yes hydrocodone Allergy Unknown 12/07/15 Yes oxycodone Allergy Unknown 12/07/15 Yes (OBDULIA BEAVER DO) Physical Exam: PE: Constitutional: Well developed, well nourished, no acute distress, non-toxic appearance. [] HENT: Normocephalic, atraumatic, bilateral external ears normal, oropharynx moist, no oral exudates, nose normal. [] Eyes: PERRLA, EOMI, conjunctiva normal, no discharge. [] Neck: Normal range of motion, no tenderness, supple, no stridor. [] Cardiovascular:Heart rate regular rhythm, no murmur [] Lungs & Thorax: Bilateral breath sounds clear to auscultation [] Abdomen: Bowel sounds normal, soft, no tenderness, no masses, no pulsatile masses. [] Skin: Warm, dry, no erythema, no rash. [] Back: No tenderness, no CVA tenderness. [] Extremities: No tenderness, no cyanosis, no clubbing, ROM intact, no edema. [] Neurologic: Alert and oriented X 3, normal motor function, normal sensory function, no focal deficits noted. [] Psychologic: Affect normal, judgement normal, mood normal. [] (OBDULIA BEAVER DO) Current Patient Data: Labs: Laboratory Tests Test 06/30/20 16:45 White Blood Count 5.8 x10^3/uL (4.0-11.0) Red Blood Count 4.59 x10^6/uL (3.50-5.40) Hemoglobin 12.2 g/dL (12.0-15.5) Hematocrit 38.2 % (36.0-47.0) Mean Corpuscular Volume 83 fL (79-100) Mean Corpuscular Hemoglobin 27 pg (25-35) Mean Corpuscular Hemoglobin Concent 32 g/dL (31-37) Red Cell Distribution Width 14.6 % (11.5-14.5) H Platelet Count 273 x10^3/uL (140-400) Neutrophils (%) (Auto) 52 % (31-73) Lymphocytes (%) (Auto) 34 % (24-48) Monocytes (%) (Auto) 9 % (0-9) Eosinophils (%) (Auto) 4 % (0-3) H Basophils (%) (Auto) 1 % (0-3) Neutrophils # (Auto) 3.0 x10^3uL (1.8-7.7) Lymphocytes # (Auto) 2.0 x10^3/uL (1.0-4.8) Monocytes # (Auto) 0.5 x10^3/uL (0.0-1.1) Eosinophils # (Auto) 0.2 x10^3/uL (0.0-0.7) Basophils # (Auto) 0.1 x10^3/uL (0.0-0.2) Prothrombin Time 9.5 SEC (9.4-11.4) Prothrombin Time INR 0.9 (0.9-1.1) Activated Partial Thromboplast Time 24 SEC (23-33) Sodium Level 138 mmol/L (136-145) Potassium Level 3.3 mmol/L (3.5-5.1) L Chloride Level 102 mmol/L (98-107) Carbon Dioxide Level 29 mmol/L (21-32) Anion Gap 7 (6-14) Blood Urea Nitrogen 11 mg/dL (7-20) Creatinine 0.8 mg/dL (0.6-1.0) Estimated GFR (Cockcroft-Gault) 76.9 BUN/Creatinine Ratio 14 (6-20) Glucose Level 123 mg/dL (70-99) H Calcium Level 9.6 mg/dL (8.5-10.1) Magnesium Level 2.0 mg/dL (1.8-2.4) Total Bilirubin 0.2 mg/dL (0.2-1.0) Aspartate Amino Transferase (AST) 17 U/L (15-37) Alanine Aminotransferase (ALT) 26 U/L (14-59) Alkaline Phosphatase 78 U/L (46-116) Troponin I Quantitative < 0.017 ng/mL (0-0.055) YR-Yma-C-Type Natriuretic Peptide 173 pg/mL (0-124) H Total Protein 7.8 g/dL (6.4-8.2) Albumin 4.0 g/dL (3.4-5.0) Albumin/Globulin Ratio 1.1 (1.0-1.7) Lipase 140 U/L (73-393) Vital Signs: Vital Signs Date Time Temp Pulse Resp B/P (MAP) Pulse Ox O2 Delivery O2 Flow Rate FiO2 11/22/20 17:02 78 18 162/116 (131) 100 (OBDULIA BEAVER DO) EKG: EKG: EKG was done at 1656, heart rate 76 bpm, sinus rhythm, no ST segment elevation. T wave inversion in III. (OBDULIA BEAVER DO) Radiology/Procedures: Radiology/Procedures: [][place] [address] IMAGING REPORT Signed PATIENT: KALPANA WOODS ACCOUNT: [id number] : 1970 LOCATION: ER AGE: 49 SEX: F EXAM STATUS: REG ER ORD. PHYSICIAN: OBDULIA BEAVER DO REASON: headache, HTN PROCEDURE: CT HEAD WO CONTRAST CT head without contrast 06/30/2020. Reason for exam: Headache. Hypertension. Noncontrast images were performed. Exposure: One or more of the following individualized dose reduction techniques were utilized for this examination: 1. Automated exposure control 2. Adjustment of the mA and/or kV according to patient size 3. Use of iterative reconstruction technique. Comparison is made with a prior study of 02/05/2007. Only some of the images couldn't be retrieved from that exam. There is no apparent intracranial mass, hemorrhage or abnormal extra-axial fluid collection. No area of abnormal density is seen in the brain. The ventricles and basilar cisterns are normally positioned. The sinuses and mastoid air cells appear clear. IMPRESSION: No evidence of acute abnormality. Electronically signed by: Mario Alberto Chandler Jr., MD (06/30/2020 5:31 PM) [facility] DICTATED AND SIGNED BY: MARIO ALBERTO CHANDLER Jr, MD DATE: 06/30/20 1739 CC: OBDULIA DALE MD; OBDULIA BEAVER DO ~MTH0 0 (OBDULIA BEAVER DO) Radiology/Procedures: EXAM: CT ANGIOGRAM CHEST, ABDOMEN AND PELVIS WITH IV CONTRAST CLINICAL HISTORY: CHEST PAIN, HYPERTENSIVE, EVALUATION FOR DISSECTION COMPARISON: 04/28/2020 03/19/2017 TECHNIQUE: Helical CT of the chest, abdomen and pelvis was performed following the administration of intravenous contrast during the arterial phase. 3-D/MIP reconstructions were generated. Axial, coronal and sagittal reformatted images were generated. ---PQRS compliance statement - One or more of the following individualized dose reduction techniques were utilized for this study: 1. Automated exposure control 2. Adjustment of the mA and/or kV according to patient size 3. Use of iterative reconstruction technique--- FINDINGS: CT angiogram: Evaluation of the aortic root and proximal ascending aorta limited given motion artifact from the heart. Aorta is normal in caliber. No evidence for aortic dissection. The origin of the great vessels of the aortic arch are widely patent. The celiac, SMA and PROSPER are widely patent. Single bilateral renal arteries. Retroaortic left renal vein. Atherosclerotic calcifications of the common iliac arteries. Chest: Heart is not enlarged. No pericardial effusion. No pleural effusion or pneumothorax. No axillary lymphadenopathy. No mediastinal or hilar lymphadenopathy. Vague groundglass opacities in the dependent left greater than right lower lobes likely atelectasis. No suspicious lung nodule or mass is seen. Thyroid is not seen. Abdomen and Pelvis: Liver and biliary system: Heterogeneous enhancement of the liver with regions of hypoattenuation likely from regions of fatty liver. Accounting for postcholecystectomy change, no biliary ductal dilatation. Spleen: Unremarkable Pancreas: Unremarkable Adrenal glands: Unremarkable Kidneys: Symmetric nephrograms. Nonobstructing left lower pole renal calculus. No hydronephrosis or hydroureter. Lymph nodes/retroperitoneum: No abdominal or pelvic lymphadenopathy. Bowel/Peritoneal cavity: Moderate colonic stool content is seen. No small or large bowel dilatation. No bowel obstruction. Appendix is normal. No abdominal or pelvic ascites. Abdominal wall: Trace fat-containing periumbilical hernia. Bladder: Diffuse bladder wall thickening likely cystitis. Bones: No aggressive osseous lesion is seen. IMPRESSION: 1. No evidence for aortic dissection within the constraints of cardiac motion artifact. Aorta is grossly normal in caliber. 2. Nonobstructing left lower pole renal calculus. 3. Hepatic hypoattenuation likely fatty liver. 4. Diffuse bladder wall thickening likely cystitis. 5. No bowel obstruction. Moderate colonic stool content can be correlated for possible constipation. Electronically signed by: Austen Mcnally MD (06/30/2020 7:37 PM) [facility] (WALI PARKINSON DO) Heart Score: HEART Score for Chest Pain: HEART Score for Chest Pain Response (Comments) Value History Slighlty/Non-Suspicious 0 ECG Normal 0 Age >45 - < 65 1 Risk Factors No Risk Factors 0 Troponin >1-<3x Normal Limit 1 Total 2 Risk Factors: Risk Factors: DM, Current or recent (<one month) smoker, HTN, HLP, family history of CAD, obesity. Risk Scores: Score 0 - 3: 2.5% MACE over next 6 weeks - Discharge Home Score 4 - 6: 20.3% MACE over next 6 weeks - Admit for Clinical Observation Score 7 - 10: 72.7% MACE over next 6 weeks - Early Invasive Strategies (OBUDLIA BEAVER DO) HEART Score for Chest Pain: HEART Score for Chest Pain Response (Comments) Value History Slighlty/Non-Suspicious 0 ECG Normal 0 Age >45 - < 65 1 Risk Factors 1 or 2 Risk Factors 1 Troponin < Normal Limit 0 Total 2 Course & Med Decision Making: Course & Med Decision Making Pertinent Labs and Imaging studies reviewed. (See chart for details) Patient is a 49-year-old female who presented to ER today for evaluation of 4- day history of headache, she was found to have hypertension, she had no previous history hypertension. CT scan of the head did not show any acute problem. Her headache is most likely due to hypertension. Patient also complained of substernal chest pain that did not radiate anywhere. EKG and cardiac enzymes normal so far. We are obtaining CTA of her chest abdomen pelvis to evaluate for dissection. Patient's care being transferred to the incoming physician at shift change Dr. Wali Parkinson. He will make final disposition after reviewing CTA . (OBDULIA BEAVER DO) Course & Med Decision Making Comprehensive signout received by off going physician. I reviewed entirety of patient's ER work-up and personally saw and evaluated patient repeating certain aspects of history and physical examination Regarding patient's headache, she had mild relief with 650 mg Tylenol and 10 mg IV Compazine administered. She shows no meningeal signs. I discussed most likely cause of her headache was due to hypertension as she has been checking her blood pressure with consistent readings greater than 150/90 for greater than 1 week. Joint decision was made to start lisinopril 5 mg daily, she was educated on the medication and potential side effects to watch out for. She took a dose of this in ER and tolerated it well, she will keep blood pressure log and follow-up with outpatient primary care physician with this. I did disclose I could not definitively rule out other more concerning causes of headache such as meningitis. I offered patient lumbar puncture but she deferred this. I feel this is acceptable as she has no meningeal signs and is overall well-appearing Regarding patient's chest pain, I believe this is an incidental finding, it does not sound true cardiac in nature, comprehensive work-up this ER visit grossly negative. She has good access to primary care physician, I feel she is stable for discharge home with outpatient follow-up with consideration for more provocative cardiac work-up in outpatient setting. EKGs unremarkable in addition to x2 - troponin. Ultimately, patient safe and stable for discharge home with close outpatient follow-up. She has good access to PCP and to be seen this upcoming week for evaluation. She is knowledgeable about keeping blood pressure log and taking new blood pressure medication daily, she is also knowledgeable on need for repeat laboratory analysis to monitor potassium level that was low today and in person starting an SUDARSHAN inhibitor. Strict return precautions were discussed with good understanding by patient, all questions and concerns addressed prior to ER departure in improved condition (WALI PARKINSON DO) Dragon Disclaimer: Qian Disclaimer: This electronic medical record was generated, in whole or in part, using a voice recognition dictation system. (OBDULIA BEAVER DO) Departure Departure: Impression: Primary Impression: Hypertension Additional Impressions: Headache Chest pain Disposition: 01 DC HOME SELF CARE/HOMELESS Condition: IMPROVED Referrals: OBDULIA DALE MD (PCP) Patient Instructions: General Headache Without Cause, Hypertension Additional Instructions: As discussed prior to ER departure, please call your primary care physician first thing tomorrow to schedule outpatient follow-up in upcoming 1 to 10 days after ER departure Please take newly prescribed lisinopril medication daily. You are educated extensively on side effects which include dry cough and angioedema and how to proceed if either one of these complications arise If any concerning signs or symptoms present prior to outpatient follow-up please do not hesitate to come back for repeat examination It was a pleasure to take care of you and I wish you the best going forward Scripts Lisinopril (LISINOPRIL) 5 Mg Tablet 1 TAB PO DAILY for HTN, #30 TAB 5 Refills Prov: WALI PARKINSON DO 06/30/20 OBDULIA BEAVER DO Jun 30, 2020 17:43 WALI PARKINSON DO Jun 30, 2020 19:45
[2020-06-30] MEDS ORDERED: MORPHINE SULFATE 4 MG/ML DISP.SYRIN. IV ONE (18:00)
[2020-06-30] MEDS ORDERED: IOHEXOL 350 MG/ML 100 ML VIAL. IV ONE (18:00)
[2020-06-30] MEDS ORDERED: POTASSIUM CHLORIDE 10 MEQ TABLET.ER. PO ONE (18:15)
[2020-06-30] MEDS ORDERED: ACETAMINOPHEN 325 MG TABLET PO ONE (19:15)
[2020-06-30] MEDS ORDERED: PROCHLORPERAZINE 10 MG/2 ML VIAL. IV ONE (19:30)
--- NOTE | 2020-06-30 19:40 | RAD ---
EXAM: CT ANGIOGRAM CHEST, ABDOMEN AND PELVIS WITH IV CONTRAST CLINICAL HISTORY: CHEST PAIN, HYPERTENSIVE, EVALUATION FOR DISSECTION COMPARISON: 04/28/2020 03/19/2017 TECHNIQUE: Helical CT of the chest, abdomen and pelvis was performed following the administration of intravenous contrast during the arterial phase. 3-D/MIP reconstructions were generated. Axial, coronal and sagittal reformatted images were generated. ---PQRS compliance statement - One or more of the following individualized dose reduction techniques were utilized for this study: 1. Automated exposure control 2. Adjustment of the mA and/or kV according to patient size 3. Use of iterative reconstruction technique--- FINDINGS: CT angiogram: Evaluation of the aortic root and proximal ascending aorta limited given motion artifact from the heart. Aorta is normal in caliber. No evidence for aortic dissection. The origin of the great vessels of the aortic arch are widely patent. The celiac, SMA and PROSPER are widely patent. Single bilateral renal arteries. Retroaortic left renal vein. Atherosclerotic calcifications of the common iliac arteries. Chest: Heart is not enlarged. No pericardial effusion. No pleural effusion or pneumothorax. No axillary lymphadenopathy. No mediastinal or hilar lymphadenopathy. Vague groundglass opacities in the dependent left greater than right lower lobes likely atelectasis. No suspicious lung nodule or mass is seen. Thyroid is not seen. Abdomen and Pelvis: Liver and biliary system: Heterogeneous enhancement of the liver with regions of hypoattenuation likely from regions of fatty liver. Accounting for postcholecystectomy change, no biliary ductal dilatation. Spleen: Unremarkable Pancreas: Unremarkable Adrenal glands: Unremarkable Kidneys: Symmetric nephrograms. Nonobstructing left lower pole renal calculus. No hydronephrosis or hydroureter. Lymph nodes/retroperitoneum: No abdominal or pelvic lymphadenopathy. Bowel/Peritoneal cavity: Moderate colonic stool content is seen. No small or large bowel dilatation. No bowel obstruction. Appendix is normal. No abdominal or pelvic ascites. Abdominal wall: Trace fat-containing periumbilical hernia. Bladder: Diffuse bladder wall thickening likely cystitis. Bones: No aggressive osseous lesion is seen. IMPRESSION: 1. No evidence for aortic dissection within the constraints of cardiac motion artifact. Aorta is grossly normal in caliber. 2. Nonobstructing left lower pole renal calculus. 3. Hepatic hypoattenuation likely fatty liver. 4. Diffuse bladder wall thickening likely cystitis. 5. No bowel obstruction. Moderate colonic stool content can be correlated for possible constipation. Electronically signed by: Austen Mcnally MD (06/30/2020 7:37 PM) [facility]
[2020-06-30] MEDS ORDERED: LISINOPRIL 5 MG TABLET. PO ONE (20:00)
[2020-06-30] MEDS ORDERED: LISI-338 PO (20:02)
[2020-06-30] MEDS ORDERED: diphenhydrAMINE 50 MG/ML VIAL ONE (21:01)
[2020-06-30 21:07] VITALS: BP 172/95
[2020-06-30] MEDS ORDERED: diphenhydrAMINE 50 MG/ML VIAL IVP ONE (21:30)
[2020-06-30 21:38] LABS: BILIRUBIN,URINE NEG (NEG); CLARITY,URINE CLEAR; COLOR,URINE YELLOW; GLUCOSE,URINE NEG (NEG)
[2020-06-30 21:39] LABS: BACTERIA,URINE 0 /HPF (0-FEW); NITRITE,URINE NEG (NEG); SQUAMOUS EPITHELIAL CELL,UR OCC /LPF; UROBILINOGEN,URINE 0.2 mg/dL (0.2 mg/dL); WBC,URINE RARE /HPF (0-4)
== END 2020-06-30 21:15 | disposition home or self-care (01) ==
LOC: ER 16:32
DX: I10 Essential (primary) hypertension (principal); R07.2 Precordial pain; R51.9 Headache, unspecified; F41.9 Anxiety disorder, unspecified; F32.9 Major depressive disorder, single episode, unspecified; M79.7 Fibromyalgia; K21.9 Gastro-esophageal reflux disease without esophagitis; E03.9 Hypothyroidism, unspecified; Z87.442 Personal history of urinary calculi; Z87.440 Personal history of urinary (tract) infections; Z90.49 Acquired absence of other specified parts of digestive tract; Z98.890 Other specified postprocedural states; Z88.0 Allergy status to penicillin; Z88.5 Allergy status to narcotic agent
CPT/HCPCS: 36415; 70450; 71045; 71275; 74175; 80053; 81001; 83690; 83735; 83880; 84484; 85025; 85610; 85730; 93005; 96374; 96375; 99285; J0780; J1200; J2270; Q9967; 96361

== ENCOUNTER 2021-03-28 15:02 | Emergency (ER) | payer BC ==
[~2021-03-28] VITALS: Ht 175.3 cm; Wt 90.0 kg
[~2021-03-28 15:02] MED LIST changes: +LISI-517 PO
[2021-03-28] MEDS ORDERED: IOHEXOL 350 MG/ML 100 ML VIAL. IV ONE (15:15)
--- NOTE | 2021-03-28 15:19 | RAD ---
EXAMINATION: CT STROKE HEAD W/O CLINICAL HISTORY: Code stroke TECHNIQUE: Serial axial images without IV contrast were obtained from the vertex to the foramen magnu m. CT Dose Reduction Employed: One or more of the following individualized dose reduction techniques wer e utilized for this examination: 1. Automated exposure control 2. Adjustment of the mA and/or kV ac cording to patient size 3. Use of iterative reconstruction technique. COMPARISON: 06/30/2020 FINDINGS: Acute Change: No evidence of an acute infarct or other acute parenchymal process. Hemorrhage: No evidence of acute intracranial hemorrhage. Mass Lesion/Mass Effect: No evidence of intracranial mass or extraaxial fluid collection. No signific ant mass effect. Parenchyma: No significant volume loss. Parenchyma otherwise within normal limits for age. Ventricles: Ventricles within normal limits for age. Paranasal Sinuses and Skull Base: Visualized paranasal sinuses clear. Visualized skull base and soft tissues unremarkable. IMPRESSION: No evidence of acute intracranial abnormality or significant interval change. FOR INTERNAL CODING PURPOSES Critical result: Findings discussed with SMITH MORTON DO at 03/28/2021 3:10 PM. RESULT CODE: (C) Electronically signed by: Billy Stanton DO (03/28/2021 3:16 PM) [id number]
--- NOTE | 2021-03-28 15:32 | PHYS DOC ---
Past History Past Medical History: Anxiety, Depression, Endometriosis, Fibromyalgia, GERD, Hypothyroid, Kidney Stones, Ovarian Cyst, UTI, Other Past Surgical History: Cholecystectomy, , Tonsillectomy, Other Additional Past Surgical Histo: thyroidectomy Smoking: Non-smoker Alcohol Use: Occasionally Drug Use: Marijuana General Adult EDM: Chief Complaint: ALTERED MENTAL STATUS HPI: HPI: 50-year-old female presents via EMS as a code stroke. The entire history comes to me as EMS reports because the patient is not answering questions. The patient was reported to be found in her car in a parking lot. She was talking on the phone with her less than an hour prior to arrival. She stopped talking to him and so he tracked her phone. He called EMS to her location. When they arrived the patient was awake but not responding. She seemed to have left-sided weakness. Last known well less than 60 minutes prior to arrival. No medical history is immediately available. Review of Systems: Review of Systems: Unable to perform due to patient not answering questions. Current Medications: Current Meds: Current Medications Medications (Trade) Dose Ordered Sig/Segun Start Time Stop Time Status Last Admin Dose Admin Iohexol (Omnipaque 350 Mg/ml) 100 ml 1X ONCE 03/28/21 15:15 03/28/21 15:16 DC 03/28/21 15:22 100 ML Allergies: Allergies: Allergies Coded Allergies Type Severity Reaction Last Updated Verified Penicillins Allergy Unknown 12/07/15 Yes hydrocodone Allergy Unknown 12/07/15 Yes oxycodone Allergy Unknown 12/07/15 Yes Physical Exam: PE: Constitutional: Well developed, well nourished, obese, no acute distress, non- toxic appearance. [] HENT: Normocephalic, atraumatic, bilateral external ears normal, oropharynx moist, no oral exudates, nose normal. [] Eyes: PERRLA, EOMI, conjunctiva normal, no discharge. [] Neck: Normal range of motion, no tenderness, supple, no stridor. [] Cardiovascular: Heart rate regular rhythm, no murmur [] Lungs & Thorax: Bilateral breath sounds clear to auscultation [] Abdomen: Bowel sounds normal, soft, no tenderness, no masses, no pulsatile masses. [] Skin: Warm, dry, no erythema, no rash. [] Back: No tenderness, no CVA tenderness. [] Extremities: No tenderness, no cyanosis, no clubbing, ROM intact, no edema. [] Neurologic: See NIHSS [] Psychologic: Unable to evaluate [] Current Patient Data: Labs: Laboratory Tests Test 03/28/21 15:21 Glucose (Fingerstick) 94 mg/dL (70-99) EKG: EKG: Sinus rhythm, rate 76, normal axis, no ST elevation or depression. [] Radiology/Procedures: Radiology/Procedures: [] Impressions: EXAMINATION: CT STROKE HEAD W/O CLINICAL HISTORY: Code stroke TECHNIQUE: Serial axial images without IV contrast were obtained from the vertex to the foramen magnum. CT Dose Reduction Employed: One or more of the following individualized dose reduction techniques were utilized for this examination: 1. Automated exposure control 2. Adjustment of the mA and/or kV according to patient size 3. Use of iterative reconstruction technique. COMPARISON: 06/30/2020 FINDINGS: Acute Change: No evidence of an acute infarct or other acute parenchymal proce ss. Hemorrhage: No evidence of acute intracranial hemorrhage. Mass Lesion/Mass Effect: No evidence of intracranial mass or extraaxial fluid collection. No significant mass effect. Parenchyma: No significant volume loss. Parenchyma otherwise within normal limits for age. Ventricles: Ventricles within normal limits for age. Paranasal Sinuses and Skull Base: Visualized paranasal sinuses clear. Visualized skull base and soft tissues unremarkable. IMPRESSION: No evidence of acute intracranial abnormality or significant interval change. FOR INTERNAL CODING PURPOSES Critical result: Findings discussed with SMITH MORTON DO at 03/28/2021 3:10 PM. RESULT CODE: (C) Electronically signed by: Billy Hurtado DO (03/28/2021 3:16 PM) [id number] DICTATED AND SIGNED BY: BILLY HURTADO DO DATE: 03/28/21 1512 CC: SMITH MORTON DO; OBDULIA DALE MD ~MTH0 0 CTA head and neck with contrast dated 03/28/2021 Comparison: none CLINICAL INDICATION: Code stroke Technique: CTA of the head and neck was acquired following the intravenous administration of 100 cc Isovue-370. Thin cut coronal and sagittal MIPS reconstructions and 3-D rotational reconstruction. One or more of the following individualized dose reduction techniques were utilized for this examination: 1. Automated exposure control 2. Adjustment of the mA and/or kV according to patient size 3. Use of iterative reconstruction technique. Carotid Stenosis calculations for CT, MR, and conventional angiography are based upon measurements of the distal ICA diameter in accordance with the NASCET methodology. Stenosis calculations for carotid ultrasound studies are derived from validated velocity criteria which are known to correlate with the NASCET methodology. FINDINGS: Contrast bolus is adequate. Aortic arch is normal in caliber. Arch anatomy is standard. Bilateral subclavian arteries and vertebral arteries are patent. No intimal flap or focal stenosis. The intradural vertebral arteries are patent. Basilar artery is well formed. Bilateral calender supervisor are patent. Common carotid arteries are patent. Internal carotid arteries are patent. No si gnificant atherosclerotic plaquing at the carotid bifurcations. ICAs are patent to the skull base. Petrous and cavernous internal carotid arteries are patent. OLIVE and MCA branches are symmetric. No stenosis or aneurysm. No proximal branch vessel occlusion. Postcontrast imaging shows no abnormal enhancement or mass. Dural venous sinuses are patent. Visualized soft tissue structures are unremarkable. Limited images of lung apices are clear. IMPRESSION: 1. No evidence of hemodynamically significant stenosis or aneurysm. No evidence of large vessel branch occlusion. IMPRESSION: 1. Electronically signed by: Abel Valdovinos MD (03/28/2021 3:47 PM) [facility] [place] DICTATED AND SIGNED BY: ABEL VALDOVINOS MD DATE: 03/28/21 1539 CC: SMITH MORTON DO; OBDULIA DALE MD ~MTH0 0 Heart Score: C/O Chest Pain: N/A Risk Factors: Risk Factors: DM, Current or recent (<one month) smoker, HTN, HLP, family history of CAD, obesity. Risk Scores: Score 0 - 3: 2.5% MACE over next 6 weeks - Discharge Home Score 4 - 6: 20.3% MACE over next 6 weeks - Admit for Clinical Observation Score 7 - 10: 72.7% MACE over next 6 weeks - Early Invasive Strategies Course & Med Decision Making: Course & Med Decision Making Pertinent Labs and Imaging studies reviewed. (See chart for details) The patient's labs are unremarkable. Her CT was unremarkable. Her CTA was unremarkable. The patient became more alert and aware after getting back to her room. She does not remember what happened today. She admits to having a significant psychiatric history. She denies drug or alcohol use. She has some left shoulder pain but this is chronic. She has no focal findings at this time. The patient's labs are unremarkable except for mild anemia with a hemoglobin of 11.6. Her urinalysis is negative for infection. Her urine drug screen is negative. The patient stated that she was having some dizziness so I gave her meclizine and Zofran. She is stable for discharge at this time. [] Dragon Disclaimer: Dragon Disclaimer: This electronic medical record was generated, in whole or in part, using a voice recognition dictation system. NIH Stroke Scale: NIH Stroke Scale Response (Comments) Value Level of Consciousness: 0 Alert/Responsive 0 LOC Questions: 0 Answers both correctly 0 LOC Commands: 0 Performs both tasks 0 Best Gaze: 0 Normal 0 Visual: 0 No visual loss 0 Facial Palsy: 0 Normal, symmetrical 0 Motor - Left Arm 0 No drift 0 Motor - Right Arm 0 No drift 0 Motor - Left Leg 0 No drift 0 Motor: Right Leg 0 No drift 0 Limb Ataxia: 0 Absent 0 Sensory: 0 No loss 0 Best Language: 0 Normal 0 Dysathria: 0 Normal 0 Extinction and Inattention: 0 Normal 0 Total 0 Departure Departure: Impression: Primary Impression: AMS (altered mental status) Additional Impression: Vertigo Disposition: 01 HOME / SELF CARE / HOMELESS Condition: IMPROVED Referrals: OBDULIA DALE MD (PCP) Patient Instructions: Altered Mental Status, Vertigo, [id number] SMITH MORTON DO Mar 28, 2021 15:32
--- NOTE | 2021-03-28 15:49 | RAD ---
CTA head and neck with contrast dated 03/28/2021 Comparison: none CLINICAL INDICATION: Code stroke Technique: CTA of the head and neck was acquired following the intravenous administration of 100 cc Isovue-370. Thin cut coronal and sagittal MIPS reconstructions and 3-D rotational reconstruction. One or more of the following individualized dose reduction techniques were utilized for this examinat ion: 1. Automated exposure control 2. Adjustment of the mA and/or kV according to patient size 3. Use of iterative reconstruction technique. Carotid Stenosis calculations for CT, MR, and conventional angiography are based upon measurements of the distal ICA diameter in accordance with the NASCET methodology. Stenosis calculations for carotid ultrasound studies are derived from validated velocity criteria which are known to correlate with th e NASCET methodology. FINDINGS: Contrast bolus is adequate. Aortic arch is normal in caliber. Arch anatomy is standard. Bilateral sub clavian arteries and vertebral arteries are patent. No intimal flap or focal stenosis. The intradural vertebral arteries are patent. Basilar artery is well formed. Bilateral machine lay out worker are patent. Common carotid arteries are patent. Internal carotid arteries are patent. No significant atherosclero tic plaquing at the carotid bifurcations. ICAs are patent to the skull base. Petrous and cavernous internal carotid arteries are patent. OLIVE and MCA branches are symmetric. No st enosis or aneurysm. No proximal branch vessel occlusion. Postcontrast imaging shows no abnormal enhancement or mass. Dural venous sinuses are patent. Visualiz ed soft tissue structures are unremarkable. Limited images of lung apices are clear. IMPRESSION: 1. No evidence of hemodynamically significant stenosis or aneurysm. No evidence of large vessel branc h occlusion. IMPRESSION: 1. Electronically signed by: Abel Valdovinos MD (03/28/2021 3:47 PM) [facility]
[2021-03-28 15:50] LABS: BASO # 0.1 x10^3/uL (0.0-0.2); BASO % 1 % (0-3); EOS # 0.3 x10^3/uL (0.0-0.7); EOS % 5 % (0-3); HEMOGLOBIN 11.6 g/dL (12.0-15.5); LYMPH # 2.1 x10^3/uL (1.0-4.8); LYMPH % 36 % (24-48); MEAN CORPUSCULAR HEMOGLOBIN 28 pg (25-35); MEAN CORPUSCULAR HGB CONC 33 g/dL (31-37); MEAN CORPUSCULAR VOLUME 84 fL (79-100); MONO # 0.5 x10^3/uL (0.0-1.1); MONO % 9 % (0-9); NEUT # 2.9 x10^3uL (1.8-7.7); NEUT % 50 % (31-73); PLATELET COUNT 234 x10^3/uL (140-400); RED BLOOD COUNT 4.15 x10^6/uL (3.50-5.40); RED CELL DISTRIBUTION WIDTH 15.1 % (11.5-14.5); WHITE BLOOD COUNT 5.8 x10^3/uL (4.0-11.0)
[2021-03-28 15:59] LABS: CALCIUM 8.3 mg/dL (8.5-10.1); CREATININE 0.9 mg/dL (0.6-1.0); GFR 66.8; POTASSIUM 3.8 mmol/L (3.5-5.1)
[2021-03-28 16:14] LABS: ALBUMIN 3.7 g/dL (3.4-5.0); ALBUMIN/GLOBULIN RATIO 1.2 (1.0-1.7); TOTAL BILIRUBIN 0.3 mg/dL (0.2-1.0); TOTAL PROTEIN 6.8 g/dL (6.4-8.2)
[2021-03-28] MEDS ORDERED: MECLIZINE 12.5 MG TABLET. PO ONE (16:45)
[2021-03-28] MEDS ORDERED: ONDANSETRON PF 4 MG/2 ML VIAL. IVP ONE (16:45)
[2021-03-28 16:58] LABS: BARBITURATES NEG (NEG); BENZODIAZEPINES NEG (NEG); CANNABINOIDS NEG (NEG); COCAINE NEG (NEG); METHADONE NEG (NEG); OPIATES NEG (NEG); PHENCYCLIDINE NEG (NEG)
[2021-03-28 17:00] LABS: AMPHETAMINE/METHAMPHETAMINE NEG (NEG)
[2021-03-28] MEDS ORDERED: CONTRAST GIVEN. MC PRN (17:00)
[2021-03-28 17:14] LABS: BACTERIA,URINE 0 /HPF (0-FEW); BILIRUBIN,URINE NEG (NEG); CLARITY,URINE CLEAR; COLOR,URINE YELLOW; GLUCOSE,URINE NEG (NEG); NITRITE,URINE NEG (NEG); RBC,URINE 0 /HPF (0-2); SQUAMOUS EPITHELIAL CELL,UR OCC /LPF; UROBILINOGEN,URINE 0.2 mg/dL (0.2 mg/dL); WBC,URINE OCC /HPF (0-4)
--- NOTE | 2021-03-28 17:21 | EKG ---
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
[2021-03-28 17:30] VITALS: BP 142/82
== END 2021-03-28 17:41 | disposition home or self-care (01) ==
LOC: ER 15:02
DX: R41.82 Altered mental status, unspecified (principal); R42 Dizziness and giddiness; R53.1 Weakness; F41.9 Anxiety disorder, unspecified; F32.9 Major depressive disorder, single episode, unspecified; M79.7 Fibromyalgia; K21.9 Gastro-esophageal reflux disease without esophagitis; E03.9 Hypothyroidism, unspecified; Z87.442 Personal history of urinary calculi; Z87.440 Personal history of urinary (tract) infections; Z88.0 Allergy status to penicillin; Z88.5 Allergy status to narcotic agent
CPT/HCPCS: 36415; 70450; 70496; 70498; 80053; 80307; 81001; 82947; 83605; 84484; 85025; 85610; 85730; 87040; 93005; 96374; 99285; J2405; Q9967

== ENCOUNTER → 2021-08-14 | Outpatient (CLI) | payer BC ==
[~2021-08-14] MED LIST changes: -LEVO500T8 PO; +LEVO500T9 PO; -LISI-517 PO; +LISI5TAB15 PO
[2021-08-14 10:47] LABS: BASO # 0.1 x10^3/uL (0.0-0.2); BASO % 1 % (0-3); EOS # 0.3 x10^3/uL (0.0-0.7); EOS % 4 % (0-3); HEMOGLOBIN 13.3 g/dL (12.0-15.5); LYMPH # 2.2 x10^3/uL (1.0-4.8); LYMPH % 32 % (24-48); MEAN CORPUSCULAR HEMOGLOBIN 28 pg (25-35); MEAN CORPUSCULAR HGB CONC 33 g/dL (31-37); MEAN CORPUSCULAR VOLUME 86 fL (79-100); MONO # 0.5 x10^3/uL (0.0-1.1); MONO % 8 % (0-9); NEUT # 3.8 x10^3uL (1.8-7.7); NEUT % 55 % (31-73); PLATELET COUNT 254 x10^3/uL (140-400); RED BLOOD COUNT 4.77 x10^6/uL (3.50-5.40); WHITE BLOOD COUNT 6.8 x10^3/uL (4.0-11.0)
[2021-08-14 10:53] LABS: ALBUMIN 4.1 g/dL (3.4-5.0); ALBUMIN/GLOBULIN RATIO 1.2 (1.0-1.7); CALCIUM 9.4 mg/dL (8.5-10.1); CREATININE 0.8 mg/dL (0.6-1.0); GFR 76.6; POTASSIUM 4.8 mmol/L (3.5-5.1); TOTAL BILIRUBIN 0.3 mg/dL (0.2-1.0); TOTAL PROTEIN 7.5 g/dL (6.4-8.2)
[2021-08-14 11:15] LABS: C REACTIVE PROTEIN 0.6 mg/L (0-3.3)
[2021-08-14 12:21] LABS: BACTERIA,URINE 0 /HPF (0-FEW); BILIRUBIN,URINE NEG (NEG); CLARITY,URINE CLEAR; COLOR,URINE YELLOW; GLUCOSE,URINE NEG (NEG); NITRITE,URINE NEG (NEG); RBC,URINE OCC /HPF (0-2); SQUAMOUS EPITHELIAL CELL,UR FEW /LPF; UROBILINOGEN,URINE 0.2 mg/dL (0.2 mg/dL); WBC,URINE OCC /HPF (0-4)
[2021-08-14 12:51] LABS: PLATELET CLUMP PRESENT; PLT ESTIMATE ADEQUATE (ADEQUATE)
[2021-08-14 13:11] LABS: SEDIMENTATION RATE 18 (0-25)
[2021-08-14 19:22] LABS: THYROID STIM HORMONE (TSH) 0.087 uIU/mL (0.358-3.740)
== END ==
LOC: LAB 09:34
PROVIDERS: ATTEND Family Medicine
DX: E03.9 Hypothyroidism, unspecified (principal); R11.0 Nausea; R30.0 Dysuria; E78.5 Hyperlipidemia, unspecified; R10.84 Generalized abdominal pain
CPT/HCPCS: 36415; 80053; 80061; 81001; 82150; 83690; 84443; 85025; 85651; 86140